=== PATIENT | male | born 1960 | race Caucasian/White ===

== ENCOUNTER → 2016-08-11 | Outpatient (CLI) | payer MEDICAID ==
--- NOTE | 2016-08-11 12:13 | MR ---
EXAMINATION TYPE: MR brain wo con DATE OF EXAM: 08/11/2016 8:23 AM COMPARISON: CT brain from March 24, 2016 HISTORY: subdural hemorrhage, convulsions per order. Seizures per patient. TECHNIQUE: Multiplanar, multisequence imaging of the brain and brainstem is performed without IV cont rast. FINDINGS: Diffusion weighted images demonstrate no evidence of a recent infarct or other diffusion abnormality. There is no worrisome extra-axial fluid collection. There is mild ventricular and sulcal prominence c onsistent with mild age-related cerebral atrophy. There are some scattered foci of T2 hyperintensity seen throughout the white matter bilaterally. Less than 10 focal lesions are felt present. Lesions ar e nonspecific in appearance and distribution but most likely on basis of product of chronic small ves ruben ischemic change in patient this age. T2 Star weighted images show no suspicious intraparenchymal blood product. T2 coronal weighted images show hippocampal gyri to appear symmetric and felt within n ormal limits. Midline structures demonstrate normal morphology. The craniocervical junction appears within normal limits. Normal vascular flow voids are present. There is 1.8 cm mucous retention cyst or polyp in inf erior left maxillary sinus. There is mild to moderate mucosal thickening involving inferior right max illary sinus. There is mild mucosal thickening involving anterior ethmoid sinuses bilaterally. The gl obes are intact bilaterally. IMPRESSION: 1. There is mild diffuse cerebral atrophy and mild chronic small vessel ischemic change. 2. Chronic paranasal sinus disease as detailed above.
== END | disposition home or self-care (01) ==
LOC: RADMRIMAIN 07:47
PROVIDERS: ATTEND Physician Assistant
DX: I67.82 Cerebral ischemia (principal); G31.9 Degenerative disease of nervous system, unspecified; J34.89 Other specified disorders of nose and nasal sinuses
CPT/HCPCS: 70551

== ENCOUNTER → 2016-09-16 | Outpatient (CLI) | payer MEDICAID ==
--- NOTE | 2016-09-17 08:49 | EEG ---
DATE OF SERVICE: 09/16/2016 REASON FOR TESTING: Convulsions and head injury. AGE: 55Y CURRENT ANTIEPILEPTIC MEDICATIONS: None. DESCRIPTION OF THE PROCEDURE: This EEG was performed using a 21-channel digital electroencephalograph, following the international 10 to 20 system. DESCRIPTION OF THE RECORDING: From the beginning of the tracing, and with the patient's eyes closed, the background rhythm was mostly consisting of 10 to 11 Hz alpha frequency in the posterior occipital leads. No obvious asymmetry is seen. Photic stimulation was performed with a good driving response seen. No pathological waves were elicited. Hyperventilation was performed with a minimal build-up of amplitude seen. Again, no pathological waves were elicited. Occasional movement artifacts are seen. The patient remains awake throughout the tracing. No epileptiform discharges were seen. His EKG lead showed a regular rate and rhythm. INTERPRETATION: This awake EEG can be considered within normal limits. There was no asymmetry seen. No epileptiform discharges were noticed. The absence of epileptiform discharges does not rule out the diagnosis of epilepsy, therefore, clinical correlation is recommended. Thank you, Dr. Mann for allowing me to participate in the care of your patient. If you have any questions, please feel free to contact me.
== END | disposition home or self-care (01) ==
LOC: NEUROMAIN 09:30
PROVIDERS: ATTEND Physician Assistant
DX: R56.9 Unspecified convulsions (principal)
CPT/HCPCS: 95816

== ENCOUNTER → 2016-10-17 | Outpatient (CLI) | payer MEDICAID ==
[2016-10-17 09:48] LABS: CH 31.4; CHCM 33.3; HCT 41.3 % (39.0-53.0); HDW 2.14; HGB 13.5 gm/dL (13.0-17.5); MCH 30.9 pg (25.0-35.0); MCHC 32.6 g/dL (31.0-37.0); MCV 94.7 fL (80.0-100.0); Mean Platelet Volume 8.1; RBC 4.36 m/uL (4.30-5.90); RDW 12.7 % (11.5-15.5); WBC 5.8 k/uL (3.8-10.6)
[2016-10-17 10:12] LABS: ALT 76 U/L (21-72); AST 50 U/L (17-59); Alkaline Phosphatase 51 U/L (38-126); Anion Gap 8 mmol/L; Blood Urea Nitrogen 18 mg/dL (9-20); Calcium 9.4 mg/dL (8.4-10.2); Carbon Dioxide 30 mmol/L (22-30); Chloride 102 mmol/L (98-107); Cholesterol 186 mg/dL (<200); Glucose 156 mg/dL (74-99); HDL Cholesterol 41 mg/dL (40-60); Non-African American GFR(MDRD) >60 (>60 ml/min/1.73 sqM); Potassium 4.6 mmol/L (3.5-5.1); Sodium 140 mmol/L (137-145); Total Bilirubin 0.5 mg/dL (0.2-1.3); Total Protein 7.2 g/dL (6.3-8.2); Triglycerides 167 mg/dL (<150)
[2016-10-17 12:08] LABS: Hemoglobin A1C 7.2 % (4.2-6.1)
== END | disposition home or self-care (01) ==
LOC: LABWHC1 09:17
PROVIDERS: ATTEND Family Medicine
DX: E11.9 Type 2 diabetes mellitus without complications (principal)
CPT/HCPCS: 36415; 80053; 80061; 82043; 83036; 84443; 85027

== ENCOUNTER → 2016-12-23 | Outpatient (CLI) | payer MEDICAID ==
--- NOTE | 2016-12-23 21:43 | PN ---
This is a 56-year-old male patient with obstructive sleep apnea coming in for his yearly check. The patient is doing well. No specific complaints. His interim history is positive for a spontaneous subdural hematoma that was complicated by the development of a seizure. The patient was transferred to the [facility], where he was seen by a neurosurgeon. No surgical intervention was done. He was taken off aspirin. Currently he is off anti-epileptic and he is back on the road driving. He has been averaging 7 hours and 18 minutes on the CPAP unit every night. He is using a Mirage FX mask. No snoring while on the CPAP machine. He has lost some weight, and his BMI is currently down to 42. Labolt score is only 2, and he is alert and awake during the day, very compliant with the CPAP unit. He became depressed and he is currently on Celexa 20 mg p.o. daily. BP is 132/72, pulse 75, respiration 16, temperature 98.2. Saturations are 96% on room air. Height is 68 inches. Weight is 283. GENERAL APPEARANCE: Obese, calm, comfortable. HEENT: Short neck. Crowding of posterior pharynx. LUNGS: Diminished; otherwise clear. HEART: Sounds are regular rate and rhythm. Normal S1, S2. ABDOMEN: Soft, nontender. No organomegaly. EXTREMITIES: No edema. No cyanosis or clubbing. IMPRESSION: 1. Symptomatic obstructive sleep apnea, currently on CPAP at a pressure of 11, with good compliancy and clinical response. 2. Morbid obesity with a body mass index of 42, improving. 3. Hypersomnia. Labolt score is down to 2. 4. Hypertension. 5. Hyperlipidemia. 6. Heartburn. PLAN: 1. Refill the patient's CPAP supplies. 2. Encourage weight loss. 3. No need for adjustments on his CPAP pressure. 4. Will continue to follow.
== END | disposition home or self-care (01) ==
LOC: SLEEP 16:41
PROVIDERS: ATTEND Internal Medicine Critical Care Medicine
DX: G47.33 Obstructive sleep apnea (adult) (pediatric) (principal); E66.01 Morbid (severe) obesity due to excess calories; Z68.41 Body mass index [BMI] 40.0-44.9, adult; G47.10 Hypersomnia, unspecified

== ENCOUNTER → 2017-01-29 | Outpatient (CLI) | payer MEDICAID ==
[2017-01-29 10:31] LABS: CH 30.4; HCT 42.9 % (39.0-53.0); HDW 2.06; HGB 14.6 gm/dL (13.0-17.5); MCH 31.5 pg (25.0-35.0); MCHC 34.1 g/dL (31.0-37.0); MCV 92.6 fL (80.0-100.0); Mean Platelet Volume 7.7; RBC 4.64 m/uL (4.30-5.90); RDW 12.3 % (11.5-15.5); WBC 6.2 k/uL (3.8-10.6)
[2017-01-29 11:05] LABS: % Iron Saturation 22.1 % (20-50)
== END | disposition home or self-care (01) ==
LOC: LABWHC1 09:59
PROVIDERS: ATTEND Internal Medicine Hematology & Oncology
DX: D50.9 Iron deficiency anemia, unspecified (principal)
CPT/HCPCS: 36415; 83540; 83550; 85027

== ENCOUNTER → 2017-08-03 | Outpatient (CLI) | payer MEDICAID ==
[2017-08-03 10:38] LABS: HCT 44.6 % (39.0-53.0); HGB 14.2 gm/dL (13.0-17.5); MCH 29.1 pg (25.0-35.0); MCHC 31.9 g/dL (31.0-37.0); MCV 91.1 fL (80.0-100.0); Platelet Count 288 k/uL (150-450); RBC 4.89 m/uL (4.30-5.90); RDW 12.7 % (11.5-15.5); WBC 6.9 k/uL (3.8-10.6)
[2017-08-03 15:47] LABS: Iron Saturation 18.43 (15.00-50.00)
== END | disposition home or self-care (01) ==
LOC: LABWHC1 10:06
PROVIDERS: ATTEND Internal Medicine Hematology & Oncology
DX: D50.9 Iron deficiency anemia, unspecified (principal)
CPT/HCPCS: 36415; 82728; 83540; 83550; 85027

== ENCOUNTER → 2017-11-05 | Outpatient (CLI) | payer MEDICAID ==
[2017-11-05 10:22] LABS: Basophils % (A) 0 %; Eosinophils # (A) 0.1 k/uL (0-0.7); Eosinophils % (A) 2 %; HCT 41.8 % (39.0-53.0); HGB 13.4 gm/dL (13.0-17.5); Lymphocytes # (A) 1.3 k/uL (1.0-4.8); Lymphocytes % (A) 25 %; MCH 28.7 pg (25.0-35.0); MCHC 31.9 g/dL (31.0-37.0); Monocytes # (A) 0.3 k/uL (0-1.0); Monocytes % (A) 6 %; Neutrophils # (A) 3.5 k/uL (1.3-7.7); Neutrophils % (A) 66 %; Platelet Count 226 k/uL (150-450); RBC 4.65 m/uL (4.30-5.90); RDW 12.7 % (11.5-15.5); WBC 5.2 k/uL (3.8-10.6)
[2017-11-05 10:43] LABS: ALT 36 U/L (21-72); AST 25 U/L (17-59); Albumin 3.8 g/dL (3.5-5.0); Alkaline Phosphatase 51 U/L (38-126); Anion Gap 10 mmol/L; Blood Urea Nitrogen 18 mg/dL (9-20); Calcium 9.4 mg/dL (8.4-10.2); Carbon Dioxide 31 mmol/L (22-30); Chloride 100 mmol/L (98-107); Cholesterol 199 mg/dL (<200); Glucose 170 mg/dL (74-99); HDL Cholesterol 44 mg/dL (40-60); LDL Cholesterol,Calculated 118 mg/dL (0-99); Potassium 5.3 mmol/L (3.5-5.1); Sodium 141 mmol/L (137-145); Total Bilirubin 0.3 mg/dL (0.2-1.3); Total Protein 6.7 g/dL (6.3-8.2); Triglycerides 184 mg/dL (<150)
[2017-11-05 17:27] LABS: Hemoglobin A1C 7.7 % (4.0-6.0)
== END | disposition home or self-care (01) ==
LOC: LABWHC1 09:57
PROVIDERS: ATTEND Family Medicine
DX: E11.65 Type 2 diabetes mellitus with hyperglycemia (principal)
CPT/HCPCS: 36415; 80053; 80061; 82043; 82570; 83036; 84443; 85025

== ENCOUNTER → 2018-02-02 | Outpatient (CLI) | payer MEDICAID ==
--- NOTE | 2018-02-02 18:49 | PN ---
PROGRESS NOTE Carl is doing extremely well on his CPAP. He is coming in for an annual check regarding his obstructive sleep apnea treatment. He is 57. He has been diagnosed having obstructive sleep apnea. He is on CPAP at a pressure of 11 cm of water. He has gained around 15 pounds over the past 1 year. He is using a Mirage FX nose mask. He is using the CPAP on an average of 7 hours and 24 minutes per night and his CPAP use for more than 4 hours is 100%. No complaints. His humidity level is at 2. He is waking up refreshed and alert. No other specific complaints otherwise for now. No seizure activity. BP is 117/72, pulse is 82, respirations 16, temperature 97.3, saturation 96% on room air. Weight is 298. Height is 5 feet 8 inches and BMI 45.4. GENERAL APPEARANCE: Calm, comfortable. Head is atraumatic, normocephalic. Neck is supple. There is no JVD. No goiter or neck masses. Mallampati class IV. LUNGS: Clear to auscultation. HEART: Sounds are regular rate and rhythm. Normal S1, S2. No S3, S4. No murmurs. Abdomen is soft, nontender. No organomegaly. EXTREMITIES: No edema. No cyanosis or clubbing. NEUROLOGIC: Alert and oriented x3. There are no focal neurological deficits. IMPRESSION: 1. Obstructive sleep apnea, currently on CPAP with excellent clinical response and compliance. 2. Obesity with interval weight gain. Current BMI is up to 45. 3. Hypersomnia. 4. Hypertension. PLAN: Continue CPAP at same level of pressure, weight loss. Renew CPAP supplies. See me back in a year's time, earlier if needed. MMODL / IJN: [id number] /
== END | disposition home or self-care (01) ==
LOC: SLEEP 16:43
PROVIDERS: ATTEND Internal Medicine Critical Care Medicine
DX: G47.33 Obstructive sleep apnea (adult) (pediatric) (principal); I10 Essential (primary) hypertension; E66.9 Obesity, unspecified; Z68.42 Body mass index [BMI] 45.0-49.9, adult; Z99.89 Dependence on other enabling machines and devices

== ENCOUNTER 2018-03-14 07:55 | Emergency (ER) | payer MEDICAID ==
[2018-03-14] MEDS ORDERED: ORPHENADRINE 30 MG/ML 2 ML VIAL IM STA (08:44)
[2018-03-14] MEDS ORDERED: MORPHINE SULFATE 4 MG/ML SYRINGE IM STA (08:44)
[2018-03-14] MEDS ORDERED: KETOROLAC 30 MG/ML 1 ML VIAL IM STA (08:44)
[2018-03-14 09:02] VITALS: RESP 18
--- NOTE | 2018-03-14 09:03 | ED ---
Back Pain [facility] - General Chief Complaint: Back Pain/Injury Stated Complaint: Back Pain Time Seen by Provider: 03/14/18 08:31 Source: patient Limitations: no limitations - History of Present Illness Initial Comments: 57-year-old male patient presents to the emergency department today with complaints of mid thoracic and low back pain. Patient states that he does have a history of arthritis in his spine and back issues however his pain is usually well-controlled with minimal use of his tramadol and Calvin. Patient states that for the last 3 weeks he has been having increase in the pain. Patient states that the pain has been worsening. States that he is unable to sleep at night. Patient states that one point the pain did radiate into his left groin but that is resolved. He denies any known injury. Denies any numbness or tingling in his lower extremities. Denies radiation of the pain to his lower extremities. Denies saddle anesthesia or loss of bowel or bladder control. He denies any fevers or chills. Patient denies any recent rash, shortness breath, chest pain, abdominal pain, nausea, vomiting, diarrhea, constipation, dizziness , weakness, hematuria, dysuria, urinary urgency, urinary frequency, headache, visual changes, or any other complaints. - Related Data Home Medications Medication Instructions Recorded Confirmed Aspirin [Adult Low Dose Aspirin EC] 81 mg PO DAILY 10/29/15 01/27/16 Esomeprazole Magnesium [NexIUM] 40 mg PO DAILY 10/29/15 01/27/16 Hydrocodone/Acetaminophen 1 PO DAILY 10/29/15 01/27/16 [Hydrocodon-Acetaminophen 5-325] Lisinopril [Zestril] 10 mg PO DAILY 10/29/15 01/27/16 Virgin-3 Acid Ethyl Esters [Lovaza] 2 gm PO DAILY 10/29/15 01/27/16 Pramipexole [Mirapex] 0.125 mg PO DAILY 10/29/15 01/27/16 Simvastatin [Zocor] 20 mg PO HS 10/29/15 01/27/16 metFORMIN HCL [Glucophage] 850 mg PO BID 10/29/15 01/27/16 traMADol HCL [Tramadol HCl] 50 mg PO DAILY 10/29/15 01/27/16 Loratadine [Claritin] 10 mg PO DAILY 01/27/16 01/27/16 Pioglitazone [Actos] 15 mg PO DAILY 01/27/16 01/27/16 Previous Rx's Medication Instructions Recorded Cyclobenzaprine [Flexeril] 10 mg PO TID #30 tab 03/14/18 Allergies Allergy/AdvReac Type Severity Reaction Status Date / Time Penicillins Allergy Swelling Verified 03/14/18 08:16 Review of Systems ROS Statement: Those systems with pertinent positive or pertinent negative responses have been documented in the HPI. ROS Other: All systems not noted in ROS Statement are negative. Past Medical History Past Medical History: Diabetes Mellitus, Hyperlipidemia, Hypertension Additional Past Medical History / Comment(s): Low iron, History of Any Multi-Drug Resistant Organisms: None Reported Past Surgical History: Orthopedic Surgery Past Psychological History: No Psychological Hx Reported Smoking Status: Never smoker Past Alcohol Use History: None Reported Past Drug Use History: None Reported General Exam Limitations: no limitations General appearance: alert, in no apparent distress, other (This is a well- developed, well-nourished adult male patient in no acute distress. Vital signs upon presentation are temperature 98.2F, pulse 73, respirations 20, blood pressure 126/54, pulse ox 95% on room air.) Eye exam: Present: normal appearance, PERRL, EOMI. Absent: scleral icterus, conjunctival injection, periorbital swelling ENT exam: Present: normal exam, normal oropharynx, mucous membranes moist Neck exam: Present: normal inspection, full ROM. Absent: tenderness, meningismus, lymphadenopathy Respiratory exam: Present: normal lung sounds bilaterally. Absent: respiratory distress, wheezes, rales, rhonchi, stridor Cardiovascular Exam: Present: regular rate, normal rhythm, normal heart sounds. Absent: systolic murmur, diastolic murmur, rubs, gallop, clicks GI/Abdominal exam: Present: soft, normal bowel sounds. Absent: distended, tenderness, guarding, rebound, rigid Extremities exam: Present: normal inspection, full ROM, normal capillary refill , other (Skin to the lower extremities is pink, warm, and dry. Cap refills less than 3 seconds. Post tibial pulses are 2+ and equal bilaterally. No swelling noted.). Absent: tenderness, pedal edema, joint swelling, calf tenderness Back exam: Present: normal inspection, vertebral tenderness (There is most mid thoracic and lumbar vertebral tenderness). Absent: paraspinal tenderness Neurological exam: Present: alert, oriented X3, CN II-XII intact Psychiatric exam: Present: normal affect, normal mood Skin exam: Present: warm, dry, intact, normal color. Absent: rash Course Vital Signs 03/14/18 03/14/18 03/14/18 08:13 08:39 10:13 Temperature 98.2 F 97.3 F L Pulse Rate 73 70 63 Respiratory 20 18 18 Rate Blood Pressure 120/56 130/58 O2 Sat by Pulse 95 97 97 Oximetry Medical Decision Making - Medical Decision Making 57-year-old male patient presents the emergency department today for complaints of increased thoracic and lumbar back pain. Patient states the pain has been worsening over the last 3 weeks. Physical examination did reveal some thoracic and lumbar tenderness. There is no paraspinal tenderness. CT of the thoracic and lumbar spines are obtained. Did show mild thecal sac impingement at L4 to L5 with spinal canal stenosis. Given patient's symptoms and history does seem that his pain is mostly related to musculoskeletal back pain. Patient was given pain medication and muscle relaxer here in the department, he does report mild improvement of symptoms. Patient will be discharged home with a muscle relaxer. He is instructed to continue taking his home medications for pain. He is instructed to follow-up with Dr. Bravo (family requested). Also patient did have evidence of a large hiatal hernia on CT they will follow up with general surgery for this. Return parameters were discussed in detail. Patient and family verbalized understanding and agree with this plan. - Radiology Data Radiology results: report reviewed, image reviewed CT thoracic spine without contrast was obtained. Report was reviewed in its entirety. Impression by Dr. Rodriguez shows large hiatal hernia mild degenerative change. CT of the lumbar spine was obtained without contrast. Impression by Dr. Rodriguez shows degenerative disc disease from L3 to L4 through L5-S1. Specifically there is diffuse disc displacement, small central protrusion mildly deforming the thecal sac. There is facet arthropathy, moderate central canal stenosis at L4 to L5. Disposition Clinical Impression: Spinal stenosis, Lumbar radiculopathy, Large hiatal hernia Disposition: HOME SELF-CARE Condition: Good Instructions: Lumbar Radiculopathy (ED), Chronic Back Pain (ED) Additional Instructions: Take medications as directed. Apply warm moist heat to the low back. Perform gentle range of motion exercises. Speak with your physician about referrals to pain management, orthopedics, and surgery. Return here immediately for any new , worsening, or concerning symptoms. Prescriptions: Cyclobenzaprine [Flexeril] 10 mg PO TID #30 tab Is patient prescribed a controlled substance at d/c from ED?: No Referrals: Austen Mann MD [Primary Care Provider] - 1-2 days Ton Bravo DO [Doctor of Osteopathic Medicine] - 1-2 days Time of Disposition: 10:10
--- NOTE | 2018-03-14 09:43 | CT ---
EXAMINATION TYPE: CT lumbar spine wo con DATE OF EXAM: 03/14/2018 9:35 AM COMPARISON: None. HISTORY: Back pain CT DLP: 1704.4 mGycm Automated exposure control for dose reduction was used. Unenhanced CT of the lumbar spine was performed. Bone and soft tissue window settings are submitted as well as coronal and sagittal reconstructions. FINDINGS: There is mild atheromatous calcification of the visualized arterial tree. Paraspinal soft t issues are otherwise normal. Vertebral body height and alignment are maintained. There is no spondylolysis or spondylolisthesis. From T12 L1-L2 3, no definite abnormality is seen. L3-L4: The intervertebral foramina are well maintained. There is a diffuse disc displacement. The fac ets are unremarkable. L4-L5: Intervertebral foramina are well maintained. There is a diffuse disc displacement. I suspect a small central protrusion mildly deforming the thecal sac. There is facet arthropathy. There is moder ate central canal stenosis. L5-S1: There is disc space loss. There is hypertrophic spondylosis both anteriorly and posteriorly. T his is impinging upon the right intervertebral foramina at this level and the exiting right L5 nerve root. IMPRESSION: 1. DEGENERATIVE DISC DISEASE FROM L3-4 THROUGH L5-S1. 2. SMALL CENTRAL PROTRUSION, L4-5 DEFORMING THE THECAL SAC AND IN COMBINATION WITH FACET ARTHROPATHY IS CAUSING MODERATE CENTRAL CANAL STENOSIS. 3. HYPERTROPHIC SPONDYLOSIS, L5-S1 IMPINGING UPON THE RIGHT INTERVERTEBRAL FORAMINA AT THIS LEVEL.
--- NOTE | 2018-03-14 09:46 | CT ---
EXAMINATION TYPE: CT thoracic spine wo con DATE OF EXAM: 03/14/2018 COMPARISON: None. HISTORY: Back pain CT DLP: 2089.4 mGycm Automated exposure control for dose reduction was used. FINDINGS: Most of the stomach is within the thorax. Paraspinal soft tissues are otherwise unremarkabl e. There is some dependent atelectasis at the base of the right lung. Visualized portions of the lungs a re otherwise clear. Vertebral body height and alignment are maintained. There is mild, diffuse hypertrophic spondylosis. No definite protrusion is seen. Intervertebral foramina are patent. IMPRESSION: 1. LARGE HIATAL HERNIA. 2. MILD DEGENERATIVE CHANGE.
[2018-03-14 10:13] VITALS: BP 130/58; PULSE 63; TEMP 97.3
== END 2018-03-14 10:23 | disposition home or self-care (01) ==
LOC: EC 07:55
DX: M48.061 Spinal stenosis, lumbar region without neurogenic claudication (principal); M51.17 Intervertebral disc disorders with radiculopathy, lumbosacral region; M46.96 Unspecified inflammatory spondylopathy, lumbar region; K44.9 Diaphragmatic hernia without obstruction or gangrene; M47.24 Other spondylosis with radiculopathy, thoracic region; E78.5 Hyperlipidemia, unspecified; I10 Essential (primary) hypertension; E11.9 Type 2 diabetes mellitus without complications; Z79.82 Long term (current) use of aspirin; Z79.84 Long term (current) use of oral hypoglycemic drugs; Z79.891 Long term (current) use of opiate analgesic; Z79.899 Other long term (current) drug therapy; Z88.0 Allergy status to penicillin
CPT/HCPCS: 72128; 72131; 99283; 96372 ×3; J2270; J2360; J1885

== ENCOUNTER → 2018-03-26 | Outpatient (CLI) | payer MEDICAID ==
[2018-03-26 08:42] LABS: HCT 39.7 % (39.0-53.0); HGB 12.5 gm/dL (13.0-17.5); MCH 28.9 pg (25.0-35.0); MCHC 31.5 g/dL (31.0-37.0); MCV 91.7 fL (80.0-100.0); Mean Platelet Volume 7.2; Platelet Count 258 k/uL (150-450); RBC 4.33 m/uL (4.30-5.90); WBC 6.3 k/uL (3.8-10.6)
[2018-03-26 16:24] LABS: Iron Saturation 18.5 (15.00-50.00)
== END | disposition home or self-care (01) ==
LOC: LABWHC1 08:08
PROVIDERS: ATTEND Internal Medicine Hematology & Oncology
DX: D50.9 Iron deficiency anemia, unspecified (principal)
CPT/HCPCS: 36415; 82728; 83540; 83550; 85027

== ENCOUNTER → 2018-04-15 | Outpatient (CLI) | payer MEDICAID ==
[2018-04-14 14:17] VITALS: BMI 47.4
[2018-04-15 12:43] VITALS: RESP 16
[2018-04-15 12:47] VITALS: BP 108/69; PULSE 84
--- NOTE | 2018-04-17 15:25 | P.PAINCN ---
History of Present Illness - Reason for Consult Consult date: 04/15/18 - History of Present Illness This is initial consultation visit for this 57 years old female with a chronic history of severe low back pain, pain started more than 10 years ago he denies any initiating event, the intensity of the pain increased over the last couple of years, he denies any weakness in the lower extremity patient reported that he had occasional numbness radiated from the low back area towards the groin bilaterally, he denies any change in the bowel movement or urination, he has no fever or night sweats, the intensity of the pain fluctuates between 6/10 increased to 10 over 10, currently she is using pain medication which helping to some degree but he wishes he can get a better relief ,by interventional pain management. Past Medical History Past Medical History: Diabetes Mellitus, Hyperlipidemia, Sleep Apnea/CPAP/BIPAP Additional Past Medical History / Comment(s): Low iron(recent infusions), subdural hematoma 2016(seizure x 1 at that time), back pain, large hiatal hernia , age related arthritis, History of Any Multi-Drug Resistant Organisms: None Reported Past Surgical History: Orthopedic Surgery Additional Past Surgical History / Comment(s): left knee arthroscopy Past Anesthesia/Blood Transfusion Reactions: No Reported Reaction Smoking Status: Never smoker - Past Family History Father Family Medical History: Cancer Additional Family Medical History / Comment(s): lung mets to brain Medications and Allergies Home Medications Medication Instructions Recorded Confirmed Type Hydrocodone/Acetaminophen 1 tab PO HS PRN 10/29/15 04/16/18 History [Hydrocodon-Acetaminophen 5-325] Lisinopril [Zestril] 10 mg PO DAILY 10/29/15 04/16/18 History metFORMIN HCL [Glucophage] 850 mg PO BID 10/29/15 04/16/18 History traMADol HCL [Tramadol HCl] 50 - 100 mg PO Q8HR PRN 10/29/15 04/16/18 History Citalopram Hydrobromide [CeleXA] 20 mg PO DAILY 04/14/18 04/16/18 History Cyclobenzaprine [Flexeril] 10 mg PO TID PRN 04/14/18 04/16/18 History Esomeprazole Magnesium [NexIUM] 20 mg PO DAILY 04/14/18 04/16/18 History Insulin Glargine [Lantus] 22 unit SQ HS 04/14/18 04/16/18 History Pioglitazone [Actos] 30 mg PO DAILY 04/14/18 04/16/18 History Simvastatin [Zocor] 40 mg PO HS 04/14/18 04/16/18 History Allergies Allergy/AdvReac Type Severity Reaction Status Date / Time Penicillins Allergy Swelling Verified 04/16/18 10:08 Physical Exam Social history : not smoker , NO ETOH , NO Illegal drugs u Review of Systems : 1- Constitutional : no chills , no fever , no night sweats , 2- Ears : no ear discharge , no change in hearing 3-Nose, Mouth ,Throat ; no bleeding gums, no sore throat , no epistaxis , 4-Cardiovascular : Denies chest pain, , no orthopnea , no palpitation 5-Respiratory : Denies cough , no dyspnea , no hemoptysis 6-Gastrointestinal :, no change in bowel habits , no coffee- ground emesis . 7-Genitourinary : No hematuria , no discharge , no incontinence, 8-Musculoskeletal : No gait dysfunction , report low back pain , 9- Neurological : no ataxia , no tremor , no sezure , 10-Psychatric , no suicidal ideation no hallucination 11- Endocrine : no cold intolerence , no polyuria , no polydypsia , 12-Hematologic : no easy bleeding , no easy brusing , 13-Allergic / immunology : no angioedema , no wheezing ,no allergic rhinitis 14-Integumentary : no brttle nails , no change hair / nails , no foot/leg ulcers . Physical Examinations : 1-Constitutional : Cooperative , not in acute distress . 2-HEENT : nech ; supple , no Lymphadenopathy , no Thyromegaly , :eyes , no icterus, no photophobia . ENT : , normal oropharynx , no Thrush 3- Respiratory : Chest clear to auscultations Bilaterally , no wheezing 4- Cardiovascular : regular rate and rhythem , S1 , S2 , no S3 , no S4. 5- Gastrointestinal: abdomen soft no tenderness , no organomegally . 6- Genitourinary : Defferred . 7-Integumentary : No cellulitis , no ulcers , normal skin turgor , no cyanotic . 8- neurologic : Cranial nerve II to XII intact , no focal neurological deffecit 9-psychatric : alert , oriented X 3 , appropriate affect , intact judgment and insight . 10-Lymphatic : no Lymphadenopathy. 11- musculoskeltal: abnormal gait Lumber spine moter stegnth lower extremities ,thigh and legs 5/5 Right side , 5/5 Left side deep tendon reflexes : normal Knee Jerk , normal ankle Jerk positive lumber facet Loading Test Range of motion of the lumbar spine Flexion 30 degrees, extension 10 degrees strait leg raising test , positive at 30 degree Fabere test positive RT and positive LT . Results Comments: MRI of the lumbar spine spondylosis at L5-S1 ,and multilevel lumbar degenerative disc disease from L3 to S1 Assessment and Plan Plan: Assessment and plan= lumbar radiculopathy, lumbar degenerative disc disease , lumbar spondylosis and facet arthropathy without myelopathy Patient will be good candidate to have lumbar epidural steroid injections under fluoroscopy guidance, Procedure risk and benefits and alternatives discussed with the patient and he agreed with the preceding. Patient could benefit from NSAID. Discher reported that the current medication is not helping him and I explained to the patient that he has to discuss this option with his primary care, patient could benefit from increasing the [place] to 7.5/325 . Time with Patient: Greater than 30 PQRS Measure Charge Sheet Measure #130: Documentation of Current Meds in Medical Chart: Patient's medications documented in chart Measure #226: Tobacco Use: Screen & Cessation Intervention: Pt not a tobacco user Measure #111: Pneumonia Vaccination: Pneumococcal vaccine NOT administered or previously given Measure #47: Advance Care Plan: Advance care planning discussed & documented, pt chose/unable to give Measure #412: Opioid Treatment Agreement: No documentation of signed opioid treatment agreement Measure #408: Opioid Therapy Follow-up Evaluation: Patient had NO f/u eval minimum every 3 months during opioid therapy Measure #317: Preventitive Care & Scrn High Bld Press & F/U: Normal blood pressure, f/u not required Measure #128: Body Mass Index (BMI) Screening & Follow-up: BMI documented ABOVE normal parameters - f/u documented Measure #131: Pain Assessment & Follow-up: Pain positive & plan documented, Follow-up scheduled Measure #431: Unhealthy Alcohol Use Preventative Care & Scrn: Patient not identified as an unhealthy alcohol user PQRS Narrative: Smoking Status Never smoker Do You Want the Pneumonia No Vaccine AT THIS TIME? Blood Pressure 108/69 Pain Intensity [Bilateral 4 Lower Back] Scale Used Numeric (1 - 10) Hx Alcohol Use (MH) No Home Medications: Ambulatory Orders Hydrocodone/Acetaminophen [Hydrocodon-Acetaminophen 5-325] 1 tab PO HS PRN 10/28 Lisinopril [Zestril] 10 mg PO DAILY 10/29/15 metFORMIN HCL [Glucophage] 850 mg PO BID 10/29/15 traMADol HCL [Tramadol HCl] 50 - 100 mg PO Q8HR PRN 10/29/15 Citalopram Hydrobromide [CeleXA] 20 mg PO DAILY 04/14/18 Cyclobenzaprine [Flexeril] 10 mg PO TID PRN 04/14/18 Esomeprazole Magnesium [NexIUM] 20 mg PO DAILY 04/14/18 Insulin Glargine [Lantus] 22 unit SQ HS 04/14/18 Pioglitazone [Actos] 30 mg PO DAILY 04/14/18 Simvastatin [Zocor] 40 mg PO HS 04/14/18
== END | disposition home or self-care (01) ==
LOC: PNWHC3 11:51
PROVIDERS: ATTEND Specialist
DX: M51.17 Intervertebral disc disorders with radiculopathy, lumbosacral region (principal); M47.27 Other spondylosis with radiculopathy, lumbosacral region; M46.96 Unspecified inflammatory spondylopathy, lumbar region; E11.9 Type 2 diabetes mellitus without complications; E78.5 Hyperlipidemia, unspecified; Z79.899 Other long term (current) drug therapy; Z79.84 Long term (current) use of oral hypoglycemic drugs; Z79.4 Long term (current) use of insulin; Z88.0 Allergy status to penicillin; Z98.890 Other specified postprocedural states
CPT/HCPCS: 99211

== ENCOUNTER 2018-04-20 06:32 | Day surgery (SDC) | payer MEDICAID ==
[2018-04-16 10:13] VITALS: BMI 44.3
[~2018-04-20 06:32] MED LIST: LACTATED RINGERS 1,000 ML IV SCH
[2018-04-20 06:59] LABS: Glucose,Whole Blood 210 mg/dL (75-99)
[2018-04-20 07:03] VITALS: TEMP 97.6
[2018-04-20] MEDS ORDERED: LIDOCAINE 1% 20 ML VIAL (10MG/ML) FOR IV START INTRADERMA ONE (07:03)
--- NOTE | 2018-04-20 07:45 | P.PCN ---
Date of Procedure: 04/20/18 Procedure(s) Performed: PREOPERATIVE DIAGNOSIS: 1- Lumbar Degenerative Disc Diseases 2-Lumbar spondylosis with Facet arthropathy without myelopathy. 3-lumbar radiculopathy. POSTOPERATIVE DIAGNOSIS: 1-Lumber Degenerative Disc Diseases 2-Lumbar spondylosis with Facet arthropathy without myelopathy. 3-lumbar radiculopathy. PROCEDURE 1. Lumbar epidural steroid injection under fluoroscopic guidance at the L4-5 level. 2. Lumbar epidurogram. ANESTHESIA: Local with 1% lidocaine 3 ml and , moderate sedation with intravenous Versed 2 mg ,and fentanyle 50 Mcg EBL: Minimal PROCEDURE INDICATION: The patient with low back pain and radiculitis symptoms unresponsive to conservative treatment. Fluoroscopy was used to optimize visualization of the needle placement and to maximize safety. PROCEDURE DESCRIPTION / TECHNIQUE: The patient was seen and identified in the preoperative area. Risks, benefits , complications including but not limited to infections ,bleeding ,allergic reaction to the medications ,nerve damage and not complete pain releife , and alternatives were discussed with the patient. The patient agreed to proceed with the procedure and signed the consent. IV was started, and vital signs were stable. Patient was taken to the OR and time out was completed. The patient was placed in the prone position on procedure table and a pillow was placed under the abdomen to reduce lumbar lordosis. The lumbosacral area was prepped and draped in the usual sterile fashion.ere closely monitored during the procedure. Conscious sedation was used during the procedure to decrease patients anxiety. Vital signs was monitered during the entire procedure. Using anterior-posterior fluoroscopy, the L4-5 interlaminar space was identified and the skin over this site was marked and then infiltrated with 1% lidocaine subcutaneously. Subsequently, a 20-gauge Tuohy epidural needle was inserted and advanced toward the epidural space using the ``Loss of resistance technique and guided by AP and lateral fluoroscopy. The correct needle position in the epidural space was verified with the injection of 2 mL of the water soluble contrast dye Isovue 200 contrast and observing an excellent epidurogram with the epidural spread of the dye, after negative aspiration for blood and CSF and in the absence of paresthesias. Again after negative aspiration, a 6 ml mixture containing 40 mg of Depo-medrol and 2 ml of preservative free Normal Saline, and 2 ml of preservative free lidocaine 1% solution was injected and a washout of epidurogram was seen. Needle was withdrawn intact, skin was cleansed, and bandages were applied. COMPLICATIONS: None DISPOSITION / PLANS: The patient was placed in a supine position and transferred to the recovery area in a stable condition for observation. There was no evidence of lower extremity motor or sensory deficit after the procedure. Patient was discharged from the recovery room after meeting discharge criteria. Home discharge instructions were given to the patient by the staff. The patient was reexamined prior to discharge. The patient will schedule a follow up in the clinic in 2-4 weeks.
[2018-04-20] MEDS ORDERED: IV FLUID CONTINUATION 1,000 ML IV ONE ×2 (07:50)
[2018-04-20 07:54] VITALS: RESP 18
[2018-04-20 07:58] LABS: Glucose,Whole Blood 214 mg/dL (75-99)
[2018-04-20 08:07] VITALS: BP 106/71; PULSE 69
--- NOTE | 2018-04-20 08:30 | FL ---
EXAMINATION TYPE: FL guided pain mgmt statistic DATE OF EXAM: 04/20/2018 HISTORY: Flouroscopy time 2 seconds of fluoroscopy provided. IMPRESSION: 1. Fluoroscopy time.
== END 2018-04-20 08:22 | disposition home or self-care (01) ==
LOC: ORPAIN 06:32
PROVIDERS: ATTEND Specialist
DX: G89.29 Other chronic pain (principal); M51.16 Intervertebral disc disorders with radiculopathy, lumbar region; M47.26 Other spondylosis with radiculopathy, lumbar region; E11.9 Type 2 diabetes mellitus without complications; E78.5 Hyperlipidemia, unspecified; Z99.89 Dependence on other enabling machines and devices; G47.30 Sleep apnea, unspecified; M19.90 Unspecified osteoarthritis, unspecified site; Z79.899 Other long term (current) drug therapy; Z79.4 Long term (current) use of insulin; Z88.0 Allergy status to penicillin
CPT/HCPCS: 62323; J2250; J1030; J3010; Q9966

== ENCOUNTER 2018-05-04 07:26 | Day surgery (SDC) | payer MEDICAID ==
[2018-05-03 08:24] VITALS: BMI 44.3
[2018-05-04 08:07] VITALS: RESP 16; TEMP 97.2
--- NOTE | 2018-05-04 08:24 | P.PCN ---
Date of Procedure: 05/04/18 Procedure(s) Performed: PREOPERATIVE DIAGNOSIS: 1- Lumbar Degenerative Disc Diseases 2-Lumbar spondylosis with Facet arthropathy without myelopathy. 3-lumbar radiculopathy. POSTOPERATIVE DIAGNOSIS: 1-Lumber Degenerative Disc Diseases 2-Lumbar spondylosis with Facet arthropathy without myelopathy. 3-lumbar radiculopathy. PROCEDURE 1. Lumbar epidural steroid injection under fluoroscopic guidance at the L4-5 level. 2. Lumbar epidurogram. ANESTHESIA: Local with 1% lidocaine 3 ml and , moderate sedation with intravenous Versed 2 mg ,and fentanyle 50 Mcg EBL: Minimal PROCEDURE INDICATION: The patient with low back pain and radiculitis symptoms unresponsive to conservative treatment. Fluoroscopy was used to optimize visualization of the needle placement and to maximize safety. PROCEDURE DESCRIPTION / TECHNIQUE: The patient was seen and identified in the preoperative area. Risks, benefits , complications including but not limited to infections ,bleeding ,allergic reaction to the medications ,nerve damage and not complete pain releife , and alternatives were discussed with the patient. The patient agreed to proceed with the procedure and signed the consent. IV was started, and vital signs were stable. Patient was taken to the OR and time out was completed. The patient was placed in the prone position on procedure table and a pillow was placed under the abdomen to reduce lumbar lordosis. The lumbosacral area was prepped and draped in the usual sterile fashion.ere closely monitored during the procedure. Conscious sedation was used during the procedure to decrease patients anxiety. Vital signs was monitered during the entire procedure. Using anterior-posterior fluoroscopy, the L4-5 interlaminar space was identified and the skin over this site was marked and then infiltrated with 1% lidocaine subcutaneously. Subsequently, a 20-gauge Tuohy epidural needle was inserted and advanced toward the epidural space using the ``Loss of resistance technique and guided by AP and lateral fluoroscopy. The correct needle position in the epidural space was verified with the injection of 2 mL of the water soluble contrast dye Isovue 200 contrast and observing an excellent epidurogram with the epidural spread of the dye, after negative aspiration for blood and CSF and in the absence of paresthesias. Again after negative aspiration, a 6 ml mixture containing 40 mg of Depo-Medrole and 2 ml of preservative free Normal Saline, and 2 ml of preservative free lidocaine 1% solution was injected and a washout of epidurogram was seen. Needle was withdrawn intact, skin was cleansed, and bandages were applied. COMPLICATIONS: None DISPOSITION / PLANS: The patient was placed in a supine position and transferred to the recovery area in a stable condition for observation. There was no evidence of lower extremity motor or sensory deficit after the procedure. Patient was discharged from the recovery room after meeting discharge criteria. Home discharge instructions were given to the patient by the staff. The patient was reexamined prior to discharge. The patient will schedule a follow up in the clinic in 2-4 weeks.
[2018-05-04] MEDS ORDERED: IV FLUID CONTINUATION 1,000 ML IV ONE (08:29)
--- NOTE | 2018-05-04 08:34 | FL ---
Fluoroscopy HISTORY: Pain 2 seconds fluoroscopy time supplied to the referring clinician. 1 intraoperative C-arm images docume nt the procedure. See dictated report from anesthesia.
[2018-05-04 08:36] LABS: Glucose,Whole Blood 208 mg/dL (75-99)
[2018-05-04 08:36] LABS: Glucose,Whole Blood 215 mg/dL (75-99)
[2018-05-04 08:47] VITALS: BP 125/78; PULSE 74
== END 2018-05-04 09:02 | disposition home or self-care (01) ==
LOC: ORPAIN 07:26
PROVIDERS: ATTEND Specialist
DX: M51.16 Intervertebral disc disorders with radiculopathy, lumbar region (principal); M47.26 Other spondylosis with radiculopathy, lumbar region; I10 Essential (primary) hypertension; E11.9 Type 2 diabetes mellitus without complications; Z88.0 Allergy status to penicillin
CPT/HCPCS: 62323; J2250; J1030; J3010; Q9966; 99152

== ENCOUNTER → 2018-05-21 | Outpatient (CLI) | payer MEDICAID ==
[2018-05-21 17:33] LABS: Hemoglobin A1C 9.3 % (4.0-6.0)
[2018-05-21 19:32] LABS: Albumin/Globulin Ratio 1.82 (1.20-2.10); Anion Gap 8.7 mmol/L (4.00-12.00); Calcium 8.9 mg/dL (8.7-10.3); Carbon Dioxide 27.3 mmol/L (21.6-31.8); Globulin 2.2 g/dL (2.1-3.7); LDL Cholesterol,Calculated 108.8 mg/dL (0.0-131.0); Potassium 4.9 mmol/L (3.5-5.5); Total Bilirubin 0.3 mg/dL (0.2-1.2); Total Protein 6.2 g/dL (6.2-8.2); VLDL Calculation 44.2 mg/dL (5.00-40.00)
[2018-05-21 19:40] LABS: Prostate Specific Antigen 0.9 ng/mL (0.0-3.5)
== END | disposition home or self-care (01) ==
LOC: LABWHC1 07:34
PROVIDERS: ATTEND Family Medicine
DX: Z00.00 Encounter for general adult medical examination without abnormal findings (principal); E11.65 Type 2 diabetes mellitus with hyperglycemia
CPT/HCPCS: 36415; 80053; 80061; 83036; 84153

== ENCOUNTER → 2018-06-02 | Outpatient (CLI) | payer MEDICAID ==
[2018-06-02 11:50] VITALS: BP 126/82; PULSE 70; RESP 18
--- NOTE | 2018-06-02 12:07 | P.PN ---
Subjective Progress Note Date: 06/02/18 This is a 57-year-old gentleman with history of lower back pain with radiation to the left groin. He had lumbar epidural steroid injection twice which gave him 2 weeks of pain relief. He denies any numbness or tingling in the lower extremities or any bowel or bladder dysfunction also denies any weakness in the lower extremities. He still works full-time.. He takes tramadol and 1 pill of [place] at home and he gets them from his primary care physician. He also uses Motrin 800 mg 1-2 pills a day if needed. Today, pt denies new-onset weakness, bowel/bladder incontinence, or any other signs or symptoms of cauda equina syndrome. There are no signs of acute intoxication, and no indications of medication diversion or overuse. In addition to above, 13-point review of systems is also negative for chest pain , shortness of breath, changes in vision, changes in hearing, new onset weakness , abdominal pain, diarrhea, extreme fatigue, malaise, fever, skin changes, homicidal or suicidal ideation, or bowel or bladder incontinence. Vital Signs: Reviewed in EMR Gen: AAOx3, NAD HEENT: PERRLA,hearing grossly normal Pulm: resp unlabored Neck: supple, trachea midline Neuro exam of the lower extremities: Normal and symmetrical muscle strength and deep tendon reflexes bilaterally Straight leg raising test: Negative bilaterally Tenderness in the paravertebral musculature: Mild in the lumbar area Neuro: CN II-XII grossly intact, Imaging: Reviewed in EMR/chart Assessment: Morbid obesity Diabetes Lumbar spondylosis without myelopathy Plan: 1. Explanation: Opioid and psychological risk scores were reviewed. Diagnoses , prognoses, and multiple treatment options including but not limited to physical therapy, interventional therapies, adjuvant medical therapies, narcotic medication therapies, and surgery were discussed with the patient and all questions were answered to the patient's satisfaction. 2. Opioid agreement: We do not prescribe opioids 3. Counseling: The patient was counseled extensively on SMOKING CESSATION, BODY MASS INDEX, EXERCISE. Specifically, the patient was instructed regarding the importance of smoking cessation, obesity, and exercise in the context of both chronic pain and overall health. 4. Procedures: Schedule for diagnostic lumbar medial branch block under fluoroscopic guidance for levels L3 4, L4-L5, and L5-S1 bilaterally 5. Consultations: None 6. Investigations: None 7. Medications: Motrin 800 mg #60 pills with 1 refill 8. Disposition: Return to clinic for the above-mentioned procedure 9. Maps were reviewed and were appropriate. Objective - Vital Signs Vital signs: Vital Signs Temp Pulse 70 06/02/18 11:40 Resp 18 06/02/18 11:40 BP 126/82 06/02/18 11:40 Pulse Ox 96 06/02/18 11:40 Intake & Output 06/01/18 06/02/18 06/02/18 18:59 06:59 18:59 Weight 136.078 kg
== END | disposition home or self-care (01) ==
LOC: PNWHC3 11:31
PROVIDERS: ATTEND Anesthesiology
DX: M47.816 Spondylosis without myelopathy or radiculopathy, lumbar region (principal); E66.01 Morbid (severe) obesity due to excess calories; E11.9 Type 2 diabetes mellitus without complications; Z68.41 Body mass index [BMI] 40.0-44.9, adult
CPT/HCPCS: 99211

== ENCOUNTER → 2018-06-21 | Day surgery (SDC) | payer MEDICAID ==
[~2018-06-21] MED LIST changes: -LACTATED RINGERS 1,000 ML IV SCH; +SODIUM CHLORIDE 0.9% 500 ML 500 ML IV ONE; +SODIUM CHLORIDE 0.9% 500 ML 500 ML IV SCH
[2018-06-21 06:31] VITALS: TEMP 98.1
--- NOTE | 2018-06-21 07:24 | P.PCN ---
Date of Procedure: 06/21/18 Procedure(s) Performed: PREOPERATIVE DIAGNOSIS : 1- Lumbar spondylosis with Facet Arthropathy without myelopathy . 2- Lumber degenerative disc disease POSTOPERATIVE DIAGNOSIS: 1- Lumbar spondylosis with Facet Arthropathy without myelopathy . 2- Lumber degenerative disc disease PROCEDURE: Diagnostic bilateral L3 -4 , L4 -5 , and L5-S1 medial branch block under fluoroscopy ANESTHESIA: Local with Ropivacain 0.5 % 6 ml , moderate sedation with intravenous Versed 2 mg and Fentanyl 100 mcg. EBL: Minimal COMPLICATION: None. IV FLUIDS: 100 mL of normal saline. PROCEDURE INDICATION: Chronic low back pain secondary to Facet arthropathy unresponsive to conservative treatment. PROCEDURE DESCRIPTION: the patient was seen and identified in the preop holding area , risks and benefits and possible complications of the procedure and alternative were discussed with the patient, and the patient agreed to proceed with the procedure and signed the consent IV was started and vital signs monitored during the procedure and fluoroscopy was used to maximize the benefit and accuracy of the needle placement, and sedation was given to decrease patient anxiety, patient was taken to the procedure room and placed in prone position vital signs monitored in the back prepped with chlorhexidine X3 then under strict sterile technique using a right oblique fluoroscopy ,the junction of the transverse process and the superior articulating process of the right L3- 4 , L4- 5, and L5-S1 vertebra which corresponding to the fluoroscopy image of the eye of the Ha dog on the block side for the medial branches and subsequently , after local infiltration of skin and subcu tissuies with Ropivacaine 0.5 % , one mL at each level , then 22-gauge 5 inches long Quincke-type needles , 3 needle was used , each one of them placed at the junction of the base of the transverse process and the superior articular process at the appropriate level, and the needle was advanced until the periosteum contacted, needle placement confirmed with AP oblique and lateral view and after appropriate needle placement confirmed, and after negative aspiration for heme and CSF and there was no paresthesia 1-1/2 mL of Ropivacaine 0.5% mixed with 20 mg Kenalog , then half mL injected at each level after negative aspiration the needle subsequently removed and the same procedure repeated for the left side at left side at L3-4, L4- 5 and L5- S1 levels. At the end of the procedure and the needles removed and a bandage applied after the skin was cleaned the cleaning solution patient taken to recovery room in stable condition and monitors in the recovery room for 20-30 minutes and discharged home in stable condition after discharge criteria met and patient will follow up with the pain clinic in 2-4 weeks
[2018-06-21 07:44] VITALS: BP 106/62; PULSE 68; RESP 18
--- NOTE | 2018-06-21 08:55 | FL ---
EXAMINATION TYPE: FL guided pain mgmt statistic DATE OF EXAM: 06/21/2018 HISTORY: Flouroscopy time 10 seconds of fluoroscopy provided. IMPRESSION: 1. Fluoroscopy time.
== END | disposition home or self-care (01) ==
LOC: ORPAIN 06:11
PROVIDERS: ATTEND Specialist
DX: M47.816 Spondylosis without myelopathy or radiculopathy, lumbar region (principal); G89.29 Other chronic pain; M51.36 Other intervertebral disc degeneration, lumbar region; M46.96 Unspecified inflammatory spondylopathy, lumbar region; E11.9 Type 2 diabetes mellitus without complications; Z88.0 Allergy status to penicillin
CPT/HCPCS: 64493; 64494; 64495; J2250; J3301; J3010; 99152

== ENCOUNTER 2018-07-05 06:30 | Day surgery (SDC) | payer MEDICAID ==
[2018-07-02 08:56] VITALS: BMI 44.3
[~2018-07-05 06:30] MED LIST changes: +LACTATED RINGERS 1,000 ML IV ONE; +LIDOCAINE 1% 20 ML VIAL (10MG/ML) FOR IV START INTRADERMA ONE; -SODIUM CHLORIDE 0.9% 500 ML 500 ML IV ONE
[2018-07-05 06:47] VITALS: RESP 18; TEMP 98.1
[2018-07-05 07:09] LABS: Glucose,Whole Blood 141 mg/dL (75-99)
--- NOTE | 2018-07-05 07:54 | P.PCN ---
Date of Procedure: 07/05/18 Procedure(s) Performed: PREOPERATIVE DIAGNOSIS : 1- Lumbar spondylosis with Facet Arthropathy without myelopathy . 2- Lumber degenerative disc disease POSTOPERATIVE DIAGNOSIS: 1- Lumbar spondylosis with Facet Arthropathy without myelopathy . 2- Lumber degenerative disc disease PROCEDURE: Diagnostic bilateral L3 -4 , L4 -5 , and L5-S1 medial branch block under fluoroscopy ANESTHESIA: Local with Ropivacain 0.5 % 6 ml , moderate sedation with intravenous Versed 2 mg and Fentanyl 50 mcg. EBL: Minimal COMPLICATION: None. IV FLUIDS: 100 mL of normal saline. PROCEDURE INDICATION: Chronic low back pain secondary to Facet arthropathy unresponsive to conservative treatment. PROCEDURE DESCRIPTION: the patient was seen and identified in the preop holding area , risks and benefits and possible complications of the procedure and alternative were discussed with the patient, and the patient agreed to proceed with the procedure and signed the consent IV was started and vital signs monitored during the procedure and fluoroscopy was used to maximize the benefit and accuracy of the needle placement, and sedation was given to decrease patient anxiety, patient was taken to the procedure room and placed in prone position vital signs monitored in the back prepped with chlorhexidine X3 then under strict sterile technique using a right oblique fluoroscopy ,the junction of the transverse process and the superior articulating process of the right L3- 4 , L4- 5, and L5-S1 vertebra which corresponding to the fluoroscopy image of the eye of the Ha dog on the block side for the medial branches and subsequently , after local infiltration of skin and subcu tissuies with Ropivacaine 0.5 % , one mL at each level , then 22-gauge 5 inches long Quincke-type needles , 3 needle was used , each one of them placed at the junction of the base of the transverse process and the superior articular process at the appropriate level, and the needle was advanced until the periosteum contacted, needle placement confirmed with AP oblique and lateral view and after appropriate needle placement confirmed, and after negative aspiration for heme and CSF and there was no paresthesia 1-1/2 mL of Ropivacaine 0.5% mixed with 20 mg Kenalog , then half mL injected at each level after negative aspiration the needle subsequently removed and the same procedure repeated for the left side at left side at L3-4, L4- 5 and L5- S1 levels. At the end of the procedure and the needles removed and a bandage applied after the skin was cleaned the cleaning solution patient taken to recovery room in stable condition and monitors in the recovery room for 20-30 minutes and discharged home in stable condition after discharge criteria met and patient will follow up with the pain clinic in 2-4 weeks
[2018-07-05 08:16] VITALS: BP 114/59; PULSE 79
[2018-07-05] MEDS ORDERED: IV FLUID CONTINUATION 1,000 ML IV ONE (08:23)
--- NOTE | 2018-07-05 08:32 | FL ---
EXAMINATION TYPE: FL guided pain mgmt statistic DATE OF EXAM: 07/05/2018 HISTORY: Flouroscopy time 26 seconds of fluoroscopy provided. IMPRESSION: 1. Fluoroscopy time.
== END 2018-07-05 08:31 | disposition home or self-care (01) ==
LOC: ORPAIN 06:30
PROVIDERS: ATTEND Specialist
DX: M47.816 Spondylosis without myelopathy or radiculopathy, lumbar region (principal); G89.29 Other chronic pain; M51.36 Other intervertebral disc degeneration, lumbar region; I10 Essential (primary) hypertension; E11.9 Type 2 diabetes mellitus without complications; Z88.0 Allergy status to penicillin
CPT/HCPCS: 64493; 64494; 64495; J2250; J3301; J3010; 99152

== ENCOUNTER → 2018-08-05 | Outpatient (CLI) | payer MEDICAID ==
[2018-08-05 14:17] VITALS: BP 109/73; PULSE 80; RESP 16
--- NOTE | 2018-08-05 14:28 | P.PN ---
Subjective Progress Note Date: 08/05/18 Mr. Martinez is a 49-year-old gentleman presents today for follow-up exam. He had successful medial branch blocks 2 recently. He reports his pain went from 8-0 throughout the day. He reports that his pain is significant better after that but has returned after diagnostic injections. He is requesting to have a lumbar radiofrequency ablation done as soon as possible. He reports pain across his low back and sometimes into his buttocks. He reports pain is worse with bending and extending his lumbar spine. Significant radicular symptoms in a dermatomal fashion. He continues to use his medications as prescribed by his other doctor and uses ibuprofen as needed. Objective - Vital Signs Vital signs: Vital Signs Temp Pulse 80 08/05/18 14:12 Resp 16 08/05/18 14:12 BP 109/73 08/05/18 14:12 Pulse Ox 95 08/05/18 14:12 Intake & Output 08/04/18 08/05/18 08/05/18 18:59 06:59 18:59 Weight 127.006 kg - Exam General: Awake and alert oriented 3 no distress Respiratory exam: No audible wheezing no accessory muscle usage Cardiovascular exam: regular rate, palpable bilateral pulses, no lower extremity edema Abdominal exam: No distention nontender to palpation Cervical spine: Normal alignment, Spurling's negative, facet loading negative Lumbar spine: Loss of lumbar lordosis, normal alignment, tender to palpation over bilateral paraspinal muscles, facet loading is positive bilaterally. Straight leg raise is negative. Sacroiliac joints: Nontender to palpation, ZOË is negative, Gaenselon negative Neuro exam: Normal sensation in bilateral upper extremities, deep tendon reflexes are 2+ bilateral upper extremities. Normal sensation in bilateral lower extremities. Deep tendon reflexes are 2+ in lower extremities Psych exam: Cooperative, appropriate mood Assessment and Plan Assessment: #1 Lumbar spondylosis without myelopathy #2 obesity Plan: Plan is to proceed with a lumbar radiofrequency ablation of the L3-L4, L4-L5, L5 -S1. We will begin with the right side and then repeat the left side 2 weeks later. I've also given a refill for ibuprofen 800 mg to use only as needed. I' ve discussed with him the risks and benefits of long-term use of NSAIDs advise him not to take them more than once or twice a day as needed. Advise and stay hydrated while using the medications.
== END | disposition home or self-care (01) ==
LOC: PNWHC3 13:59
PROVIDERS: ATTEND Hospitalist
DX: M47.816 Spondylosis without myelopathy or radiculopathy, lumbar region (principal); E66.9 Obesity, unspecified; Z68.41 Body mass index [BMI] 40.0-44.9, adult; Z79.1 Long term (current) use of non-steroidal anti-inflammatories (NSAID)
CPT/HCPCS: 99211

== ENCOUNTER 2018-08-12 07:57 | Day surgery (SDC) | payer MEDICAID ==
[2018-08-11 10:19] VITALS: BMI 41.3
[2018-08-12] MEDS ORDERED: SODIUM CHLORIDE 0.9% 500 ML 500 ML IV SCH (08:10)
[2018-08-12] MEDS ORDERED: LACTATED RINGERS 1,000 ML IV ONE (08:22)
[2018-08-12] MEDS ORDERED: LIDOCAINE 1% 20 ML VIAL (10MG/ML) FOR IV START INTRADERMA ONE (08:22)
[2018-08-12 08:28] VITALS: TEMP 97.7
[2018-08-12 08:28] LABS: Glucose,Whole Blood 139 mg/dL (75-99)
--- NOTE | 2018-08-12 09:11 | P.PCN ---
Date of Procedure: 08/12/18 Procedure(s) Performed: PREOPERATIVE DIAGNOSIS: 1-Lumbar Spondylosis with Facet Arthropathy without myelopathy. 2- Lumber degenerative disc disease POSTOPERATIVE DIAGNOSIS: 1- Lumbar Spondylosis with Facet Arthropathy without myelopathy. 2- Lumber degenerative disc disease PROCEDURES : Right Radiofrequency thermocoagulation, L3-L4, L4-L5, and L5-S1 medial branch, with fluoroscopic guidance ANESTHESIA: Moderate sedation with intravenous versed 2 mg and fentaneyl 100 mcg, and local infiltration with Ropivacaine 0.5 % . EBL: Minimal PROCEDURE INDICATION: The patient with low back pain secondary to lumbar facet arthropathy who had more than 50% relief of her pain with previous diagnostic lumbar medial branch block with bupivacaine. PROCEDURE DESCRIPTION / TECHNIQUE: The patient was seen and identified in the preoperative area. Risks, benefits, complications, including but not limited to risk of infection ,bleeding , allergic reactions to the medications and no complete pain releife , and alternatives were discussed with the patient, the patient agreed to proceed with the procedure and signed the consent. IV was started. Vital signs remained stable throughout the procedure. Patient was taken to the OR and time out was completed. The patient was placed in the prone position on the procedure table. The lumber area was prepped and draped in the usual sterile fashion. . Vital signs were closely monitored during the procedure .IV sedation was used during the procedure to decrease patients anxiety. Using AP and then oblique fluoroscopy, the ``eye of the Ha dog corresponding to the connection between the superior and transverse articular processes of right L3, L4, and L5 were identified, marked, and localized with 1% lidocaine. Subsequently, a 18 -sl radiofrequency cannula with a 10- mm active tip was advanced guided by fluoroscopy to each of the``eyes of the Ha dog at right L3, L4, and L5. Each site then underwent sensory testing at 50 Hz and 0 to 1 volt and motor testing at 2.5 Hz and 0 to 3 volt with local stimulation, but no radicular symptoms down the legs. Thereafter the right L3-4, L4-5, and L5-S1 sites underwent radiofrequency thermocoagulation at 80 degrees celsius for 90 seconds after injecting 0.5 ml of PF Ropivacaine 1ml, then after the thermocoagulation done , 1 ml of the block solution containing Depo-Medrol 40 mg and 3 ml of Ropivacaine 0.5% was injected at the right L3-4 , L4-5 , and L5-S1, levels after negative aspiration of CSF and blood and with no paresthesias. Cannulas were retracted while injecting lidocaine 1% until the needle is out. At the end of the procedure, the skin was cleansed and bandages were applied. COMPLICATIONS: No acute complications. DISPOSITION / PLANS: The patient was placed in a supine position and transferred to the recovery area in a stable condition for observation and was discharged from the recovery room after meeting discharge criteria. Home discharge instructions given to the patient by the staff. The patient was reexamined prior to discharge. The patient will schedule a follow up in the clinic in 2-4 weeks.
[2018-08-12] MEDS ORDERED: IV FLUID CONTINUATION 1,000 ML IV ONE (09:19)
[2018-08-12 09:24] LABS: Glucose,Whole Blood 128 mg/dL (75-99)
[2018-08-12 09:49] VITALS: RESP 18
[2018-08-12 09:50] VITALS: BP 122/74; PULSE 75
--- NOTE | 2018-08-12 11:48 | FL ---
Fluoroscopy HISTORY: Pain 12 seconds fluoroscopy time supplied to the referring clinician. 3 intraoperative C-arm images docum ent the procedure. See dictated report from anesthesia.
== END 2018-08-12 09:50 | disposition home or self-care (01) ==
LOC: ORPAIN 07:57
PROVIDERS: ATTEND Specialist
DX: M47.816 Spondylosis without myelopathy or radiculopathy, lumbar region (principal); M51.36 Other intervertebral disc degeneration, lumbar region; I10 Essential (primary) hypertension; E11.9 Type 2 diabetes mellitus without complications; Z88.0 Allergy status to penicillin
CPT/HCPCS: 64635; 64636; J2250; J1030; J3010; 99152

== ENCOUNTER 2018-08-26 06:42 | Day surgery (SDC) | payer MEDICAID ==
[2018-08-26] MEDS ORDERED: SODIUM CHLORIDE 0.9% 500 ML 500 ML IV SCH (06:48)
[2018-08-26 06:56] VITALS: TEMP 97.5
[2018-08-26 07:02] LABS: Glucose,Whole Blood 110 mg/dL (75-99)
[2018-08-26] MEDS ORDERED: LIDOCAINE 1% 20 ML VIAL (10MG/ML) FOR IV START INTRADERMA ONE (07:03)
[2018-08-26] MEDS ORDERED: LACTATED RINGERS 1,000 ML IV ONE (07:03)
--- NOTE | 2018-08-26 08:07 | P.PCN ---
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 2- Lumber degenerative disc disease. POSTOPERATIVE DIAGNOSIS: 1- Lumbar Spondylosis with Facet Arthropathy without myelopathy. 2- Lumber degenerative disc disease. PROCEDURES : Left Radiofrequency thermocoagulation, L3-L4, L4-L5, and L5-S1 medial branch, with fluoroscopic guidance. ANESTHESIA: Moderate sedation with intravenous versed 2 mg and fentaneyl 100 mcg, and local infiltration with Ropivacaine 0.5 % . EBL: Minimal PROCEDURE INDICATION: The patient with low back pain secondary to lumbar facet arthropathy who had more than 50% relief of her pain with previous diagnostic lumbar medial branch block with bupivacaine. PROCEDURE DESCRIPTION / TECHNIQUE: The patient was seen and identified in the preoperative area. Risks, benefits, complications, including but not limited to risk of infection ,bleeding , allergic reactions to the medications and no complete pain releife , and alternatives were discussed with the patient, the patient agreed to proceed with the procedure and signed the consent. IV was started. Vital signs remained stable throughout the procedure. Patient was taken to the OR and time out was completed. The patient was placed in the prone position on the procedure table. The lumber area was prepped and draped in the usual sterile fashion. . Vital signs were closely monitored during the procedure .IV sedation was used during the procedure to decrease patients anxiety. Using AP and then oblique fluoroscopy, the ``eye of the Ha dog corresponding to the connection between the superior and transverse articular processes of Left L3, L4, and L5 were identified, marked, and localized with 1 % lidocaine. Subsequently, a [id number] radiofrequency cannula with a 10- mm active tip was advanced guided by fluoroscopy to each of the``eyes of the Ha dog at Left L3, L4, and L5. Each site then underwent sensory testing at 50 Hz and 0 to 1 volt and motor testing at 2.5 Hz and 0 to 3 volt with local stimulation, but no radicular symptoms down the legs. Thereafter the Left L3-4, L4-5, and L5-S1 sites underwent radiofrequency thermocoagulation at 80 degrees celsius for 90 seconds after injecting 0.5 ml of PF Ropivacaine 1ml, then after the thermocoagulation done , 1 ml of the block solution containing Depo-Medrol 40 mg and 3 ml of Ropivacaine 0.5% was injected at the Left L3-4 , L4-5 , and L5-S1, levels after negative aspiration of CSF and blood and with no paresthesias. Cannulas were retracted while injecting lidocaine 1% until the needle is out. At the end of the procedure, the skin was cleansed and bandages were applied. COMPLICATIONS: No acute complications. DISPOSITION / PLANS: The patient was placed in a supine position and transferred to the recovery area in a stable condition for observation and was discharged from the recovery room after meeting discharge criteria. Home discharge instructions given to the patient by the staff. The patient was reexamined prior to discharge. The patient will schedule a follow up in the clinic in 2-4 weeks.
[2018-08-26] MEDS ORDERED: IV FLUID CONTINUATION 1,000 ML IV ONE (08:12)
[2018-08-26 08:17] VITALS: RESP 16
[2018-08-26 08:26] VITALS: BP 104/57; PULSE 63
--- NOTE | 2018-08-26 09:05 | FL ---
EXAMINATION TYPE: FL guided pain mgmt statistic DATE OF EXAM: 08/26/2018 HISTORY: Flouroscopy time 37 seconds of fluoroscopy provided. IMPRESSION: 1. Fluoroscopy time.
== END 2018-08-26 09:00 | disposition home or self-care (01) ==
LOC: ORPAIN 06:42
PROVIDERS: ATTEND Specialist
DX: M47.816 Spondylosis without myelopathy or radiculopathy, lumbar region (principal); M51.36 Other intervertebral disc degeneration, lumbar region; Z88.0 Allergy status to penicillin
CPT/HCPCS: 64635; 64636 ×2; J2250; J1030; J3010; 99152; 99153

== ENCOUNTER → 2018-09-30 | Outpatient (CLI) | payer MEDICAID ==
[2018-09-30 12:10] VITALS: BP 148/88; PULSE 79; RESP 16
--- NOTE | 2018-09-30 12:20 | P.PAINPG ---
Subjective Progress Note Date: 09/30/18 Principal diagnosis: Lumbar spondylosis This very pleasant 57-year-old gentleman with a history of intractable low back pain. He is undergone lumbar radio frequency ablation and reports substantial relief of his symptoms. He currently is working to get off his pain medications and takes ibuprofen 800 sporadically. He finds this more helpful than his opiates. He denies any new complaints. Objective - Vital Signs Vital signs: Vital Signs Temp Pulse 79 09/30/18 12:06 Resp 16 09/30/18 12:06 BP 148/88 09/30/18 12:06 Pulse Ox Intake & Output 09/29/18 09/30/18 09/30/18 18:59 06:59 18:59 Weight 129.274 kg - Exam General: The patient is alert and oriented. Patient is not sedated Patient answers all question appropriately. Cardiac: Heart is regular in rate and rhythm Respiratory: Clear to auscultation. No audible wheezes. Abdomen: Soft nontender nondistended. Musculoskeletal: Strength is normal bilaterally. Sensation is normal bilaterally. Straight leg raise is negative bilaterally. Facet loading maneuvers are minimally positive today. Neurological: Reflexes are preserved and symmetric bilaterally. Assessment and Plan (1) Lumbar spondylosis Current Visit: Yes Status: Acute Code(s): M47.816 - SPONDYLOSIS W/O MYELOPATHY OR RADICULOPATHY, LUMBAR REGION SNOMED Code(s): 399821451 Plan: Plan of Care 1. Medications: I have refilled the patient's prescription for Motrin 800. I have counseled him on the risks and benefits of this medication. I've advised him to use it sparingly to treat his low back pain. He understands my concerns and agrees to comply with this plan of care. 2. Interventions: Patient can schedule repeat of radio frequency ablation on an as-needed basis. 3. Referrals: None 4. Testing: None 5. Follow-up: As needed PQRS Measure Charge Sheet Measure #130: Documentation of Current Meds in Medical Chart: Patient not eligible for medications to be documented Measure #226: Tobacco Use: Screen & Cessation Intervention: Pt not a tobacco user Measure #111: Pneumonia Vaccination: Pneumococcal vaccine NOT administered or previously given Measure #47: Advance Care Plan: Advance care planning discussed & documented, pt chose/unable to give Measure #412: Opioid Treatment Agreement: No documentation of signed opioid treatment agreement Measure #408: Opioid Therapy Follow-up Evaluation: Patient had NO f/u eval minimum every 3 months during opioid therapy Measure #317: Preventitive Care & Scrn High Bld Press & F/U: Normal blood pressure, f/u not required Measure #128: Body Mass Index (BMI) Screening & Follow-up: BMI documented ABOVE normal parameters - f/u documented Measure #131: Pain Assessment & Follow-up: Pain positive & plan documented Measure #431: Unhealthy Alcohol Use Preventative Care & Scrn: Patient not identified as an unhealthy alcohol user PQRS Narrative: Smoking Status Never smoker Do You Want the Pneumonia No Vaccine AT THIS TIME? Blood Pressure 148/88 Scale Used Numeric (1 - 10) Hx Alcohol Use (MH) No Home Medications: Ambulatory Orders Hydrocodone/Acetaminophen [Hydrocodon-Acetaminophen 5-325] 1 tab PO HS PRN 10/29/15 Lisinopril [Zestril] 10 mg PO DAILY 10/29/15 metFORMIN HCL [Glucophage] 850 mg PO BID 10/29/15 traMADol HCL [Tramadol HCl] 50 - 100 mg PO Q8HR PRN 10/29/15 Citalopram Hydrobromide [CeleXA] 20 mg PO DAILY 04/14/18 Esomeprazole Magnesium [NexIUM] 20 mg PO DAILY 04/14/18 Insulin Glargine [Lantus] 26 unit SQ HS 04/14/18 Pioglitazone [Actos] 30 mg PO DAILY 04/14/18 Simvastatin [Zocor] 40 mg PO HS 04/14/18 Ibuprofen [Motrin] 800 mg PO Q8HR PRN 06/02/18 Controlled Substance Measures - Controlled Substance Measures Is patient prescribed a controlled substance at discharge?: No
== END | disposition home or self-care (01) ==
LOC: PNWHC3 11:57
PROVIDERS: ATTEND Pain Medicine Pain Medicine
DX: M47.816 Spondylosis without myelopathy or radiculopathy, lumbar region (principal); Z79.1 Long term (current) use of non-steroidal anti-inflammatories (NSAID); Z79.891 Long term (current) use of opiate analgesic
CPT/HCPCS: 99211

== ENCOUNTER → 2019-05-31 | Outpatient (CLI) | payer MEDICAID ==
--- NOTE | 2019-05-31 18:33 | PN ---
PROGRESS NOTE SLEEP CENTER PROGRESS NOTE: This is a 58-year-old male patient coming in for an annual visit regarding obstructive sleep apnea. The patient is currently on a CPAP pressure of 11 cm of water. The patient is using a [employer] Respironics unit. His weight is down by around 6 pounds since his last evaluation; currently the patient is down to 292. He is averaging about 7 hours and 42 minutes of CPAP use per night and his CPAP use for more than 4 hours is 100%. He is using a Cardenas FX nose mask. No other new complaints otherwise for now. [place] score is down to 3. No hypertension. No nasal congestion. No CHF. No cardiac arrhythmias. REVIEW OF SYSTEMS: Fourteen-point review of systems was done. Positive findings were all mentioned above in the history of present illness. PHYSICAL EXAMINATION: VITAL SIGNS: BP is 119/68, pulse 82, respirations 16, temperature 98.2, saturation 95% on room air. Height is 5 feet 8 inches, weight 292. BMI is 44.3. [place] score is 3. GENERAL APPEARANCE: Calm, comfortable. HEAD: Atraumatic, normocephalic. NECK: Supple. There is no JVD. No goiter or neck masses. LUNGS: Clear to auscultation. HEART: Heart sounds are regular rate and rhythm. Normal S1, S2. No S3, S4. No murmurs. ABDOMEN: Soft, nontender. No organomegaly. EXTREMITIES: No edema. No cyanosis or clubbing. NEUROLOGIC: Awake and alert. There are no focal neurological deficits. PSYCHIATRIC: Negative for anxiety or depression. IMPRESSION: 1. Obstructive sleep apnea, currently on CPAP with a pressure of 11 cm of water. 2. Hypersomnia, recovered. [place] score is down to 3. 3. Obesity with a body mass index of 44.3. The patient has lost weight and currently is down to 292. 4. Hypertension. PLAN: 1. Encourage weight loss. 2. Continue CPAP therapy at the same level of pressure. 3. Refills given for the mask, tubing and filters. 4. Encourage further weight loss. 5. See me back in a year's time in followup; earlier if needed. Treatment is successful for now. MMODL / IJN: [id number] /
== END | disposition home or self-care (01) ==
LOC: SLEEP 16:58
PROVIDERS: ATTEND Internal Medicine Critical Care Medicine
DX: G47.33 Obstructive sleep apnea (adult) (pediatric) (principal); E66.9 Obesity, unspecified; Z68.41 Body mass index [BMI] 40.0-44.9, adult; I10 Essential (primary) hypertension; Z99.89 Dependence on other enabling machines and devices

== ENCOUNTER → 2019-07-29 | Outpatient (CLI) | payer MEDICAID ==
[2019-07-29 12:12] LABS: Appearance,Urine Clear (Clear); Bilirubin,Urine Negative (Negative); Blood,Urine Small (Negative); Color,Urine Yellow; Glucose,Urine (UA) Negative (Negative); Ketones,Urine Negative (Negative); Leukocyte Esterase,Urine Negative (Negative); Mucus,Urine Occasional /hpf; Nitrite,Urine Negative (Negative); PH, Urine 5.5 (5.0-8.0); Protein,Urine Trace (Negative); RBC,Urine 2 /hpf (0-5); Specific Gravity,Urine 1.028 (1.001-1.035); Urobilinogen,Urine <2.0 mg/dL (<2.0); WBC,Urine <1 /hpf (0-5)
[2019-07-29 17:16] LABS: African American GFR (CKD) 84.7 (60.0-200.0); Albumin 4.3 g/dL (3.80-4.90); Albumin/Globulin Ratio 2.05 (1.60-3.17); Anion Gap 9.2 mmol/L (4.00-12.00); BUN/Creat Ratio 17.27 Ratio (12.00-20.00); Calcium 9.4 mg/dL (8.7-10.3); Carbon Dioxide 26.8 mmol/L (21.6-31.8); Chol/HDL Ratio 3.95; Globulin 2.1 g/dL (1.6-3.3); Non-African American GFR(CKD) 73.1 (60.0-200.0); Potassium 4.6 mmol/L (3.5-5.5); Total Bilirubin 0.3 mg/dL (0.2-1.2); Total Protein 6.4 g/dL (6.2-8.2)
[2019-07-29 19:05] LABS: Hemoglobin A1C 7.5 % (4.0-6.0)
== END | disposition home or self-care (01) ==
LOC: LABWHC1 10:47
PROVIDERS: ATTEND Family Medicine
DX: Z00.01 Encounter for general adult medical examination with abnormal findings (principal); E11.65 Type 2 diabetes mellitus with hyperglycemia; Z13.9 Encounter for screening, unspecified
CPT/HCPCS: 36415; 80053; 80061; 81001; 83036; 84153; 86803

== ENCOUNTER → 2020-02-20 | Outpatient (CLI) | payer MEDICAID ==
[2020-02-20 11:13] LABS: Basophils % (A) 1 %; Eosinophils # (A) 0.1 k/uL (0-0.7); Eosinophils % (A) 2 %; HCT 42.9 % (39.0-53.0); HGB 14.1 gm/dL (13.0-17.5); Lymphocytes # (A) 1.6 k/uL (1.0-4.8); Lymphocytes % (A) 24 %; MCH 30.9 pg (25.0-35.0); MCV 93.8 fL (80.0-100.0); Mean Platelet Volume 7.7; Monocytes # (A) 0.5 k/uL (0-1.0); Monocytes % (A) 7 %; Neutrophils # (A) 4.2 k/uL (1.3-7.7); Neutrophils % (A) 65 %; Platelet Count 237 k/uL (150-450); RBC 4.57 m/uL (4.30-5.90); RDW 12.4 % (11.5-15.5); WBC 6.5 k/uL (3.8-10.6)
[2020-02-20 19:27] LABS: Hemoglobin A1C 7.3 % (4.0-6.0)
[2020-02-20 21:25] LABS: Urine Creatinine 174.4 mg/dL
[2020-02-20 21:33] LABS: African American GFR (CKD) 84.1 (60.0-200.0); Albumin 4.3 g/dL (3.80-4.90); Albumin/Globulin Ratio 1.72 (1.60-3.17); Anion Gap 9.7 mmol/L (4.00-12.00); BUN/Creat Ratio 17.27 Ratio (12.00-20.00); Calcium 9.6 mg/dL (8.7-10.3); Carbon Dioxide 27.3 mmol/L (21.6-31.8); Chol/HDL Ratio 3.64; Globulin 2.5 g/dL (1.6-3.3); LDL Cholesterol,Calculated 71.4 mg/dL (0.0-131.0); Non-African American GFR(CKD) 72.6 (60.0-200.0); Potassium 4.7 mmol/L (3.5-5.5); Total Bilirubin 0.3 mg/dL (0.2-1.2); Total Protein 6.8 g/dL (6.2-8.2); VLDL Calculation 31.6 mg/dL (5.00-40.00)
== END | disposition home or self-care (01) ==
LOC: LABWHC1 09:02
PROVIDERS: ATTEND Family Medicine
DX: E11.65 Type 2 diabetes mellitus with hyperglycemia (principal)
CPT/HCPCS: 36415; 80053; 80061; 82043; 82570; 83036; 84443; 85025

== ENCOUNTER → 2020-08-10 | Outpatient (CLI) | payer MEDICAID ==
[2020-08-10 15:40] LABS: African American GFR (CKD) 75.7 (60.0-200.0); Albumin 4.1 g/dL (3.80-4.90); Albumin/Globulin Ratio 1.95 (1.60-3.17); Anion Gap 6.3 mmol/L (4.00-12.00); Calcium 9.3 mg/dL (8.7-10.3); Carbon Dioxide 30.7 mmol/L (21.6-31.8); Chol/HDL Ratio 4.31; Globulin 2.1 g/dL (1.6-3.3); LDL Cholesterol,Calculated 81.2 mg/dL (0.0-131.0); Non-African American GFR(CKD) 65.3 (60.0-200.0); Potassium 4.6 mmol/L (3.5-5.5); Total Bilirubin 0.4 mg/dL (0.2-1.2); Total Protein 6.2 g/dL (6.2-8.2); VLDL Calculation 34.8 mg/dL (5.00-40.00)
[2020-08-10 15:49] LABS: Prostate Specific Antigen 1.1 ng/mL (0.0-4.5)
[2020-08-10 18:45] LABS: Hemoglobin A1C 8.4 % (4.0-6.0)
== END | disposition home or self-care (01) ==
LOC: LABWHC1 10:10
PROVIDERS: ATTEND Family Medicine
DX: Z00.01 Encounter for general adult medical examination with abnormal findings (principal); E11.65 Type 2 diabetes mellitus with hyperglycemia
CPT/HCPCS: 36415; 80053; 80061; 83036; 84153

== ENCOUNTER 2020-11-01 06:46 | Emergency (ER) | payer MEDICAID ==
[2020-11-01] MEDS ORDERED: ACETAMINOPHEN TAB 500 MG TAB PO STA (07:14)
--- NOTE | 2020-11-01 07:21 | ED ---
General Adult HPI - General Chief complaint: Shortness of Breath Stated complaint: SOB Time Seen by Provider: 11/01/20 06:50 Source: patient, RN notes reviewed, old records reviewed Mode of arrival: ambulatory Limitations: no limitations - History of Present Illness Initial comments: This is a 59-year-old male who presents emergency Department complaining of not feeling well and being weak for 3-4 days. Patient states he also feels somewhat short of breath per patient states he has a history of diabetes. Patient states he has exposure to cold because his son was diagnosed with it. Patient denies any diarrhea. Patient denies abdominal pain. Patient denies chest pain. Patient denies palpitations. Patient states he does have a cough that is dry. Patient states she's felt hot but he does get the chills as well. Patient states he did not take his temperature has not taken any Motrin or Tylenol. Patient denies any leg swelling or calf tenderness. - Related Data Home Medications Medication Instructions Recorded Confirmed Hydrocodone/Acetaminophen 1 tab PO HS PRN 10/29/15 09/30/18 [Hydrocodon-Acetaminophen 5-325] lisinopriL [Zestril] 10 mg PO DAILY 10/29/15 09/30/18 metFORMIN HCL [Glucophage] 850 mg PO BID 10/29/15 09/30/18 traMADol HCL [Tramadol HCl] 50 - 100 mg PO Q8HR PRN 10/29/15 09/30/18 Citalopram Hydrobromide [CeleXA] 20 mg PO DAILY 04/14/18 09/30/18 Esomeprazole Magnesium [NexIUM] 20 mg PO DAILY 04/14/18 09/30/18 Insulin Glargine [Lantus] 26 unit SQ HS 04/14/18 09/30/18 Pioglitazone [Actos] 30 mg PO DAILY 04/14/18 09/30/18 Simvastatin [Zocor] 40 mg PO HS 04/14/18 09/30/18 Ibuprofen [Motrin] 800 mg PO Q8HR PRN 06/02/18 09/30/18 Allergies Allergy/AdvReac Type Severity Reaction Status Date / Time Penicillins Allergy Swelling Verified 11/01/20 06:54 Review of Systems ROS Statement: Those systems with pertinent positive or pertinent negative responses have been documented in the HPI. ROS Other: All systems not noted in ROS Statement are negative. Past Medical History Past Medical History: Diabetes Mellitus, Hyperlipidemia, Hypertension Additional Past Medical History / Comment(s): Low iron History of Any Multi-Drug Resistant Organisms: None Reported Past Surgical History: Orthopedic Surgery Additional Past Surgical History / Comment(s): knee arthroscopy, pain clinic procedures Past Anesthesia/Blood Transfusion Reactions: No Reported Reaction Past Psychological History: No Psychological Hx Reported Smoking Status: Never smoker Past Alcohol Use History: None Reported Past Drug Use History: None Reported - Past Family History Father Family Medical History: Cancer Mother Family Medical History: No Reported History General Exam - General Exam Comments Initial Comments: GENERAL: Patient is well-developed and well-nourished. Patient is nontoxic and well- hydrated and is in mild distress. Patient is diaphoretic. ENT: Neck is soft and supple. No significant lymphadenopathy is noted. Oropharynx is clear. Moist mucous membranes. Neck has full range of motion without eliciting any pain. EYES: The sclera were anicteric and conjunctiva were pink and moist. Extraocular movements were intact and pupils were equal round and reactive to light. Eyelids were unremarkable. PULMONARY: Unlabored respirations. Good breath sounds bilaterally. No audible rales rhonchi or wheezing was noted. CARDIOVASCULAR: There is a regular rate and rhythm without any murmurs gallops or rubs. ABDOMEN: Soft and nontender with normal bowel sounds. SKIN: Skin is clear with no lesions or rashes and otherwise unremarkable. NEUROLOGIC: Patient is alert and oriented x3. Cranial nerves II through XII are grossly intact. Motor and sensory are also intact. Normal speech, volume and content. Symmetrical smile. MUSCULOSKELETAL: Normal extremities with adequate strength and full range of motion. LYMPHATICS: No significant lymphadenopathy is noted PSYCHIATRIC: Normal psychiatric evaluation. Limitations: no limitations Course Vital Signs 11/01/20 11/01/20 11/01/20 06:50 07:03 08:01 Temperature 98.3 F Pulse Rate 104 H 101 H Respiratory 24 25 H 20 Rate Blood Pressure 115/72 121/80 O2 Sat by Pulse 91 L 96 Oximetry Medical Decision Making - Medical Decision Making EKG shows normal sinus rhythm at 91 bpm [place] interval 230 QRS is 98 QT interval 360 QTC is 452. EKG shows no ST segment elevation or depression. Patient's chest x-ray shows bilateral opacifications in lung consistent with "pneumonia. Patient's code pneumonia test came back positive. Patient is receiving monoclonal antibodies. Patient is continuing to oxygenate well he will be discharged home. - Lab Data Result diagrams: 11/01/20 07:22 11/01/20 07:22 Lab Results 11/01/20 11/01/20 11/01/20 Range/Units 07:22 07:22 07:22 WBC 6.6 (3.8-10.6) k/uL RBC 4.57 (4.30-5.90) m/uL Hgb 14.0 (13.0-17.5) gm/dL Hct 39.9 (39.0-53.0) % MCV 87.3 (80.0-100.0) fL MCH 30.7 (25.0-35.0) pg MCHC 35.1 (31.0-37.0) g/dL RDW 12.3 (11.5-15.5) % Plt Count 256 (150-450) k/uL MPV 7.0 Neutrophils % 76 % Lymphocytes % 16 % Monocytes % 5 % Eosinophils % 0 % Basophils % 0 % Neutrophils # 5.0 (1.3-7.7) k/uL Lymphocytes # 1.1 (1.0-4.8) k/uL Monocytes # 0.3 (0-1.0) k/uL Eosinophils # 0.0 (0-0.7) k/uL Basophils # 0.0 (0-0.2) k/uL PT 10.2 (9.0-12.0) sec INR 0.9 (<1.2) APTT 23.7 (22.0-30.0) sec D-Dimer 0.53 (<0.60) mg/L FEU Sodium 133 L (137-145) mmol/L Potassium 4.2 (3.5-5.1) mmol/L Chloride 99 (98-107) mmol/L Carbon Dioxide 23 (22-30) mmol/L Anion Gap 11 mmol/L BUN 22 H (9-20) mg/dL Creatinine 1.22 (0.66-1.25) mg/dL Est GFR (CKD-EPI)AfAm 74 (>60 ml/min/1.73 sqM) Est GFR (CKD-EPI)NonAf 64 (>60 ml/min/1.73 sqM) Glucose 204 H (74-99) mg/dL Plasma Lactic Acid Otmmy (0.7-2.0) mmol/L Calcium 8.5 (8.4-10.2) mg/dL Magnesium 1.4 L (1.6-2.3) mg/dL Total Bilirubin 0.7 (0.2-1.3) mg/dL AST 42 (17-59) U/L ALT 30 (4-49) U/L Alkaline Phosphatase 52 (38-126) U/L Lactate Dehydrogenase 910 H (313-618) U/L C-Reactive Protein 45.7 H (<10.0) mg/L Total Protein 7.1 (6.3-8.2) g/dL Albumin 3.9 (3.5-5.0) g/dL Coronavirus (PCR) (Not Detectd) 11/01/20 11/01/20 Range/Units 07:22 08:00 WBC (3.8-10.6) k/uL RBC (4.30-5.90) m/uL Hgb (13.0-17.5) gm/dL Hct (39.0-53.0) % MCV (80.0-100.0) fL MCH (25.0-35.0) pg MCHC (31.0-37.0) g/dL RDW (11.5-15.5) % Plt Count (150-450) k/uL MPV Neutrophils % % Lymphocytes % % Monocytes % % Eosinophils % % Basophils % % Neutrophils # (1.3-7.7) k/uL Lymphocytes # (1.0-4.8) k/uL Monocytes # (0-1.0) k/uL Eosinophils # (0-0.7) k/uL Basophils # (0-0.2) k/uL PT (9.0-12.0) sec INR (<1.2) APTT (22.0-30.0) sec D-Dimer (<0.60) mg/L FEU Sodium (137-145) mmol/L Potassium (3.5-5.1) mmol/L Chloride (98-107) mmol/L Carbon Dioxide (22-30) mmol/L Anion Gap mmol/L BUN (9-20) mg/dL Creatinine (0.66-1.25) mg/dL Est GFR (CKD-EPI)AfAm (>60 ml/min/1.73 sqM) Est GFR (CKD-EPI)NonAf (>60 ml/min/1.73 sqM) Glucose (74-99) mg/dL Plasma Lactic Acid Otmmy 1.0 (0.7-2.0) mmol/L Calcium (8.4-10.2) mg/dL Magnesium (1.6-2.3) mg/dL Total Bilirubin (0.2-1.3) mg/dL AST (17-59) U/L ALT (4-49) U/L Alkaline Phosphatase (38-126) U/L Lactate Dehydrogenase (313-618) U/L C-Reactive Protein (<10.0) mg/L Total Protein (6.3-8.2) g/dL Albumin (3.5-5.0) g/dL Coronavirus (PCR) Detected A (Not Detectd) Disposition Clinical Impression: Pneumonia due to COVID-19 virus Disposition: HOME SELF-CARE Instructions (If sedation given, give patient instructions): Coronavirus Disease 2019 (COVID-19) Is patient prescribed a controlled substance at d/c from ED?: No Referrals: Austen Mann MD [Primary Care Provider] - 1-2 days Time of Disposition: 10:15
[2020-11-01 07:33] LABS: Basophils % (A) 0 %; Eosinophils % (A) 0 %; HCT 39.9 % (39.0-53.0); Lymphocytes # (A) 1.1 k/uL (1.0-4.8); Lymphocytes % (A) 16 %; MCH 30.7 pg (25.0-35.0); MCHC 35.1 g/dL (31.0-37.0); MCV 87.3 fL (80.0-100.0); Monocytes # (A) 0.3 k/uL (0-1.0); Monocytes % (A) 5 %; Neutrophils % (A) 76 %; Platelet Count 256 k/uL (150-450); RBC 4.57 m/uL (4.30-5.90); RDW 12.3 % (11.5-15.5); WBC 6.6 k/uL (3.8-10.6)
--- NOTE | 2020-11-01 07:40 | XR ---
EXAMINATION TYPE: XR chest 1V portable DATE OF EXAM: 11/01/2020 HISTORY: Shortness of breath. COMPARISON: 01/27/2016 TECHNIQUE: Single view of the chest is submitted. FINDINGS: Demonstrated are scattered senescent parenchymal change. Patchy basilar infiltrates seen felt to reflect underlying pneumonia. The heart is stable. Fixed hiatal hernia noted. Hilar and mediastinal structures are within normal limits. Degenerative changes are seen of the dorsal spine. IMPRESSION: 1. Patchy basilar infiltrates seen felt to reflect underlying pneumonia.
[2020-11-01 07:47] LABS: D-Dimer 0.53 mg/L FEU (<0.60); INR 0.9 (<1.2); Partial Thromboplastin Time 23.7 sec (22.0-30.0); Prothrombin Time 10.2 sec (9.0-12.0)
[2020-11-01 07:50] LABS: Albumin 3.9 g/dL (3.5-5.0); C Reactive Protein 45.7 mg/L (<10.0); Calcium 8.5 mg/dL (8.4-10.2); Magnesium 1.4 mg/dL (1.6-2.3); Potassium 4.2 mmol/L (3.5-5.1); Total Bilirubin 0.7 mg/dL (0.2-1.3); Total Protein 7.1 g/dL (6.3-8.2)
[2020-11-01] MEDS ORDERED: BAMLANIVIMAB (EUA) 700 MG, ETESEVIMAB (EUA) 1,400 MG in SODIUM CHLORIDE 0.9% 50 ML IVPB ONE (10:00)
[2020-11-01 12:02] VITALS: BP 109/75; PULSE 77; RESP 18; TEMP 98.1
[2020-11-01 21:05] LABS: Ferritin 639.6 ng/mL (22.0-322.0)
== END 2020-11-01 11:34 | disposition home or self-care (01) ==
LOC: EC 06:46
DX: U07.1 COVID-19 (principal); J12.82 Pneumonia due to coronavirus disease 2019; E11.9 Type 2 diabetes mellitus without complications; E78.5 Hyperlipidemia, unspecified; I10 Essential (primary) hypertension; Z79.4 Long term (current) use of insulin; Z88.0 Allergy status to penicillin
CPT/HCPCS: 36415; 71045; 80053; 82728; 83605; 83615; 83735; 84145; 85025; 85379; 85610; 85730; 86140; 87040; 87635; 93005; 99285

== ENCOUNTER → 2021-02-09 | Outpatient (CLI) | payer MEDICAID ==
[2021-02-09 16:56] LABS: Basophils # (A) 0.03 X 10*3/uL (0.00-0.10); Basophils % (A) 0.6 %; Eosinophils # (A) 0.13 X 10*3/uL (0.04-0.35); Eosinophils % (A) 2.4 %; HCT 40.8 % (39.6-50.0); HGB 13.2 g/dL (13.0-17.0); Lymphocytes # (A) 1.41 X 10*3/uL (0.90-5.00); MCH 30.1 pg (27.0-32.0); MCHC 32.4 g/dL (32.0-37.0); MCV 92.9 fL (80.0-97.0); Mean Platelet Volume 10.2 fL (9.5-12.2); Monocytes # (A) 0.48 X 10*3/uL (0.20-1.00); Monocytes % (A) 8.9 %; Neutrophils # (A) 3.35 X 10*3/uL (1.80-7.70); Neutrophils % (A) 61.7 %; Platelet Count 233 X 10*3/uL (140-440); RBC 4.39 X 10*6/uL (4.40-5.60); RDW 13.2 % (11.5-14.5); WBC 5.42 X 10*3/uL (4.50-10.00)
[2021-02-09 17:53] LABS: Urine Creatinine 163.9 mg/dL
[2021-02-09 18:18] LABS: African American GFR (CKD) 83.5 (60.0-200.0); Albumin 4.4 g/dL (3.80-4.90); Albumin/Globulin Ratio 1.63 (1.60-3.17); Anion Gap 6.5 mmol/L (4.00-12.00); BUN/Creat Ratio 18.18 Ratio (12.00-20.00); Carbon Dioxide 27.5 mmol/L (21.6-31.8); Chol/HDL Ratio 4.29; Globulin 2.7 g/dL (1.6-3.3); LDL Cholesterol,Calculated 95.6 mg/dL (0.0-131.0); Non-African American GFR(CKD) 72.1 (60.0-200.0); Potassium 4.7 mmol/L (3.5-5.5); Total Bilirubin 0.3 mg/dL (0.3-1.2); Total Protein 7.1 g/dL (6.2-8.2); VLDL Calculation 29.4 mg/dL (5.00-40.00)
[2021-02-09 21:50] LABS: Hemoglobin A1C 6.9 % (4.0-6.0)
== END | disposition home or self-care (01) ==
LOC: LABWHC1 10:18
PROVIDERS: ATTEND Family Medicine
DX: E11.65 Type 2 diabetes mellitus with hyperglycemia (principal)
CPT/HCPCS: 36415; 80053; 80061; 82043; 82570; 83036; 84443; 85025

== ENCOUNTER → 2021-08-31 | Outpatient (CLI) | payer MEDICAID ==
[2021-08-31 16:28] LABS: ALT 26 U/L (10-49); AST 19 U/L (14-35); African American GFR (CKD) 86.4 (60.0-200.0); Albumin/Globulin Ratio 1.29 (1.60-3.17); Alkaline Phosphatase 54 U/L (41-126); BUN/Creat Ratio 15.05 Ratio (12.00-20.00); Blood Urea Nitrogen 16.1 mg/dL (9.0-27.0); Calcium 9.3 mg/dL (8.7-10.3); Carbon Dioxide 26.5 mmol/L (20.0-27.5); Chloride 100 mmol/L (96-109); Globulin 3.1 g/dL (1.6-3.3); Glucose 230 mg/dL (70-110); LDL Cholesterol,Calculated 83.9 mg/dL (0.0-131.0); Non-African American GFR(CKD) 74.5 (60.0-200.0); Potassium 4.8 mmol/L (3.5-5.5); Sodium 137 mmol/L (135-145); Total Protein 7.1 g/dL (6.2-8.2)
== END | disposition home or self-care (01) ==
LOC: LABWHC1 10:35
PROVIDERS: ATTEND Family Medicine
DX: E11.65 Type 2 diabetes mellitus with hyperglycemia (principal)
CPT/HCPCS: 36415; 80053; 80061; 83036

== ENCOUNTER → 2022-02-22 | Outpatient (CLI) | payer MEDICAID ==
[2022-02-22 11:21] LABS: Basophils # (A) 0.03 X 10*3/uL (0.00-0.10); Basophils % (A) 0.5 %; Eosinophils # (A) 0.15 X 10*3/uL (0.04-0.35); Eosinophils % (A) 2.3 %; HGB 13.4 g/dL (13.0-17.0); Immature Grans, Automated 0.3 %; Lymphocytes # (A) 1.77 X 10*3/uL (0.90-5.00); Lymphocytes % (A) 27.2 %; MCH 29.5 pg (27.0-32.0); MCHC 31.2 g/dL (32.0-37.0); MCV 94.5 fL (80.0-97.0); Mean Platelet Volume 9.8 fL (9.5-12.2); Monocytes # (A) 0.52 X 10*3/uL (0.20-1.00); NRBC Per 100 WBC 0 /100 WBCS (0.0-0.0); Neutrophils # (A) 4.02 X 10*3/uL (1.80-7.70); Neutrophils % (A) 61.7 %; Platelet Count 244 X 10*3/uL (140-440); RBC 4.55 X 10*6/uL (4.40-5.60); RDW 13.2 % (11.5-14.5); WBC 6.51 X 10*3/uL (4.50-10.00)
[2022-02-22 11:37] LABS: ALT 28 U/L (10-49); AST 22 U/L (14-35); African American GFR (CKD) 84.8 (60.0-200.0); Albumin 4.1 g/dL (3.8-4.9); Albumin/Globulin Ratio 1.61 (1.60-3.17); Alkaline Phosphatase 49 U/L (41-126); BUN/Creat Ratio 15.74 Ratio (12.00-20.00); Calcium 9.1 mg/dL (8.7-10.3); Carbon Dioxide 28.8 mmol/L (20.0-27.5); Chloride 104 mmol/L (96-109); Chol/HDL Ratio 3.79 Ratio; Globulin 2.5 g/dL (1.6-3.3); Glucose 145 mg/dL (70-110); LDL Cholesterol,Calculated 101.1 mg/dL (0.0-131.0); Non-African American GFR(CKD) 73.2 (60.0-200.0); Potassium 4.5 mmol/L (3.5-5.5); Sodium 142 mmol/L (135-145); Total Protein 6.6 g/dL (6.2-8.2); VLDL Calculation 19.56 mg/dL (5.00-40.00)
== END | disposition home or self-care (01) ==
LOC: LABWHC1 08:39
PROVIDERS: ATTEND Family Medicine
DX: E11.65 Type 2 diabetes mellitus with hyperglycemia (principal)
CPT/HCPCS: 36415; 80053; 80061; 82043; 82570; 83036; 84443; 85025

== ENCOUNTER → 2023-02-27 | Outpatient (CLI) | payer MEDICAID ==
[2023-02-27 16:04] LABS: Basophils # (A) 0.05 X 10*3/uL (0.00-0.10); Basophils % (A) 0.7 %; Eosinophils # (A) 0.23 X 10*3/uL (0.04-0.35); Eosinophils % (A) 3.1 %; HCT 43.2 % (39.6-50.0); Lymphocytes # (A) 1.57 X 10*3/uL (0.90-5.00); Lymphocytes % (A) 21.4 %; MCH 29.8 pg (27.0-32.0); MCHC 32.4 d/dL (32.0-37.0); MCV 91.9 FL (80.0-97.0); Mean Platelet Volume 10.2 FL (9.5-12.2); Monocytes # (A) 0.49 X 10*3/uL (0.20-1.00); Monocytes % (A) 6.7 %; NRBC Per 100 WBC 0 X 10*3/uL (0.00-0.01); Neutrophils # (A) 4.95 X 10*3/uL (1.80-7.70); Neutrophils % (A) 67.7 %; Platelet Count 257 X 10*3/uL (140-440); RDW 12.8 % (11.5-14.5); WBC 7.32 X 10*3/uL (4.50-10.00)
[2023-02-27 17:45] LABS: ALT 51 U/L (10-49); AST 30 U/L (14-35); Albumin 4.7 d/dL (3.8-4.9); Albumin/Globulin Ratio 1.68 Ratio (1.60-3.17); Alkaline Phosphatase 56 U/L (41-126); BUN/Creat Ratio 11.42 Ratio (12.00-20.00); Blood Urea Nitrogen 13.7 mg/dL (9.0-27.0); Calcium 9.8 mg/dL (8.7-10.3); Carbon Dioxide 26.7 mmol/L (21.6-31.8); Chloride 100 mmol/L (96-109); Chol/HDL Ratio 2.99 Ratio; Globulin 2.8 d/dL (1.6-3.3); Glucose 136 mg/dL (70-110); Potassium 5.1 mmol/L (3.5-5.5); Sodium 141 mmol/L (135-145); Total Bilirubin 0.3 mg/dL (0.3-1.2); Total Protein 7.5 d/dL (6.2-8.2)
== END | disposition home or self-care (01) ==
LOC: LABWHC1 11:12
PROVIDERS: ATTEND Family Medicine
DX: E11.65 Type 2 diabetes mellitus with hyperglycemia (principal)
CPT/HCPCS: 36415; 80053; 80061; 82043; 82570; 83036; 84443; 85025

== ENCOUNTER → 2023-06-23 | Outpatient (CLI) | payer MEDICAID ==
--- NOTE | 2023-06-23 14:30 | P.SLEEP ---
History of Present Illness H&P Date: 06/23/23 This is a very pleasant 62-year-old male patient who is coming in to reestablish his sleep apnea care here at the sleep Center. His last evaluation was back in 2017. The patient is a long-term CPAP use and the patient has been on CPAP therapy for more than 8-9 years. The patient has an older generation Respironics unit which is malfunctioning at this point in time and the patient is interested in updating his machine. Noted the patient was being treated with CPAP pressure of 11 cm of water. He also has a Mirage fx nasal mask regarding his obstructive sleep apnea treatment. Note that over the past 6 years, the patient has lost considerable amount of weight. Back in 2019, the patient is to weigh around 192 pounds and has lost approximately 43 pounds for the time being. Despite his weight loss, he has been very compliant to CPAP treatment. He weighs his machine every night. He does not smoke while on the treatment. His been averaging around 9 hours and 40 minutes of CPAP use per night. His current [place] score is at 5. He goes to bed at around 11 PM and wakes up 5 AM in the morning. No major hypersomnia or sleepiness during the day as long as he wears his CPAP. No naps during the day. He wakes up refreshed and alert during the day. He is diabetic. He has also hypertension and hyperlipidemia as comorbid conditions. Review of Systems Constitutional: Reports as per HPI, Reports weight loss Eyes: denies as per HPI, denies blurred vision, denies bulging eye, denies decreased vision, denies diplopia, denies discharge, denies dry eye, denies irritation, denies itching, denies pain, denies photophobia, denies loss of peripheral vision, denies loss of vision, denies tunnel vision/blind spots Ears: deny: decreased hearing, ear discharge, earache, tinnitus Ears, nose, mouth and throat: Reports as per HPI Breasts: absent: as per HPI, gynecomastia Cardiovascular: Reports as per HPI Respiratory: Reports sleep apnea Gastrointestinal: Reports as per HPI Genitourinary: Reports as per HPI Musculoskeletal: Reports as per HPI Musculoskeletal: absent: ankle pain, ankle stiffness, ankle swelling Integumentary: Reports as per HPI Neurological: Reports as per HPI Psychiatric: Reports as per HPI Endocrine: Reports as per HPI Hematologic/Lymphatic: Reports as per HPI Past Medical History Past Medical History: Diabetes Mellitus, Hyperlipidemia, Hypertension, Sleep Apnea/CPAP/BIPAP Additional Past Medical History / Comment(s): Low iron History of Any Multi-Drug Resistant Organisms: None Reported Past Surgical History: Orthopedic Surgery Additional Past Surgical History / Comment(s): knee arthroscopy, pain clinic procedures Past Anesthesia/Blood Transfusion Reactions: No Reported Reaction Past Psychological History: No Psychological Hx Reported Smoking Status: Never smoker Past Alcohol Use History: None Reported Past Drug Use History: None Reported - Past Family History Father Family Medical History: Cancer Mother Family Medical History: No Reported History Medications and Allergies Home Medications Medication Instructions Recorded Confirmed Type Hydrocodone/Acetaminophen 1 tab PO HS PRN 10/29/15 09/30/18 History [Hydrocodon-Acetaminophen 5-325] lisinopriL [Zestril] 10 mg PO DAILY 10/29/15 09/30/18 History metFORMIN HCL [Glucophage] 850 mg PO BID 10/29/15 09/30/18 History traMADol HCL [Tramadol HCl] 50 - 100 mg PO Q8HR PRN 10/29/15 09/30/18 History Citalopram Hydrobromide [CeleXA] 20 mg PO DAILY 04/14/18 09/30/18 History Esomeprazole Magnesium [NexIUM] 20 mg PO DAILY 04/14/18 09/30/18 History Insulin Glargine [Lantus] 26 unit SQ HS 04/14/18 09/30/18 History Pioglitazone [Actos] 30 mg PO DAILY 04/14/18 09/30/18 History Simvastatin [Zocor] 40 mg PO HS 04/14/18 09/30/18 History Ibuprofen [Motrin] 800 mg PO Q8HR PRN 06/02/18 09/30/18 History Allergies Allergy/AdvReac Type Severity Reaction Status Date / Time Penicillins Allergy Swelling Verified 11/01/20 06:54 Physical Exam BP is 109/72, pulse is 78, respirations 12, weight is 249 pounds, temperature is 97.6, pulse ox is 90% on room air oxygen, the size of the neck is 18.5 inches, [place] score is at 5, BMI is at 36. The patient appeared well nourished and normally developed. Vital signs as documented. Head exam is unremarkable. No scleral icterus or corneal arcus noted. Neck is without jugular venous distension, thyromegaly, or carotid bruits. Carotid upstrokes are brisk bilaterally. Lungs are clear to auscultation and percussion. Cardiac exam reveals the PMI to be normally sized and situated. Rhythm is regular. First and second heart sounds normal. No murmurs, rubs or gallops. Abdominal exam reveals normal bowel sounds, no masses, no organomegaly and no aortic enlargement. Extremities are nonedematous and both femoral and pedal pulses are normal.Examination of the skin revealed no evidence of significant rashes, suspicious appearing nevi or other concerning lesions.Neurologically, the patient is awake and alert and the patient does not have any focal neurological deficit. Cranial nerves are essentially intact. Assessment and Plan Plan: Obstructive sleep apnea, currently on a CPAP pressure of 11 cm of water. The patient has been compliant to CPAP therapy over the years and the patient is interested in updating his CPAP unit. His last evaluation with me was back in 2017. Since then, the patient has lost approximately 43 pounds. Continues to use his CPAP without any interruption averaging more than 9 hours of CPAP use per night Chronic hypersomnia, improved and the patient's [place] score is down to 5 Hypertension Hyperlipidemia Diabetes mellitus 2 Plan This patient is very much interested in pursuing and continuing CPAP therapy at the patient has according to him symptoms of obstructive sleep apnea. I'm going to order a home sleep study to be established diagnosis of the severity of the illness and following that the patient can be given a CPAP unit at the same pressure of 11 cm of water. We'll keep him on the same mask interface as the patient is using a Mirage fx nasal mask. encourage further weight loss Optimize sleep hygiene measures Maintain regular sleep schedule We'll continue to follow Sleep Note - Sleep Note Sleep Note: Temperature: Pulse Rate: Respiratory Rate: Blood Pressure: SpO2: Height: Weight: BMI: Neck Circumference:
== END ==
LOC: 3 N SLEEP 13:03
PROVIDERS: ATTEND Internal Medicine Critical Care Medicine
DX: G47.33 Obstructive sleep apnea (adult) (pediatric) (principal); G47.10 Hypersomnia, unspecified; I10 Essential (primary) hypertension; E78.5 Hyperlipidemia, unspecified; E11.9 Type 2 diabetes mellitus without complications; Z99.89 Dependence on other enabling machines and devices; Z79.4 Long term (current) use of insulin; Z79.899 Other long term (current) drug therapy; Z79.84 Long term (current) use of oral hypoglycemic drugs; Z88.0 Allergy status to penicillin
CPT/HCPCS: 99211

== ENCOUNTER → 2023-07-08 | Outpatient (CLI) | payer MEDICAID ==
--- NOTE | 2023-07-14 23:17 | SLS ---
SLEEP STUDY This is a home sleep study. HISTORY OF PRESENT ILLNESS: A 62-year-old male patient, known history of obstructive sleep apnea, maintained on CPAP pressure of 11 cm of water. The patient has been compliant with treatment for many years. His last evaluation was in 2017 and since then, the patient has lost approximately 43 pounds. He continued to use his CPAP without any interruptions and he was interested in continuing CPAP therapy. A home sleep study was ordered to establish again the diagnosis and its severity and decide if ongoing treatment is needed. PERTINENT PHYSICAL FINDINGS: The patient's body mass index is 36. Camden score is at 5 and weight is 249. TECHNICAL DESCRIPTION: The [employer] system was used to complete the home sleep study. This is a type 3 home sleep study. Total recording duration was 9 hours and 43 minutes. The study started at 8:40 p.m., ended at 6:23 a.m. There was more than 9 hours of flow on oxygen saturation evaluation and this was an adequate study. RESULTS: Respiratory count showed a total of 341 obstructive hypopneas and 22 obstructive apneas, and the resulting AHI was 36, worse in the supine body position with an AHI of 45 while being supine. OXYGENATION ANALYSIS: Minimum pulse ox was 80%. Average pulse ox was 90%. Baseline pulse ox was 94% while awake. The patient spent approximately 2 hours and 49 minutes of sleep time at a pulse ox of 88% and below. CARDIAC SUMMARY: Average heart rate was 72, minimum heart rate was 55, maximum heart rate was 109. ASSESSMENT: 1. Severe obstructive sleep apnea with an AHI of 39 and slightly worse in supine body position. 2. Nocturnal oxygen desaturation. 3. Chronic hypersomnia. 4. Diabetes mellitus. 5. Hypertension. 6. Hyperlipidemia. PLAN: Continue CPAP therapy. The patient will be provided a new CPAP machine at a pressure of 11 cm of water, which is the pressure that he has utilized earlier. The patient is using a Mirage FX nasal mask and this will be continued. After obtaining a new machine, the patient will see me back in the office for a compliancy check. TODD / ISSAC: [id number] /
== END ==
LOC: 3 N SLEEP 13:07
PROVIDERS: ATTEND Internal Medicine Critical Care Medicine
DX: G47.33 Obstructive sleep apnea (adult) (pediatric) (principal); G47.36 Sleep related hypoventilation in conditions classified elsewhere; E11.9 Type 2 diabetes mellitus without complications; I10 Essential (primary) hypertension; E78.5 Hyperlipidemia, unspecified; G47.10 Hypersomnia, unspecified; Z99.89 Dependence on other enabling machines and devices; Z88.0 Allergy status to penicillin; Z79.4 Long term (current) use of insulin; Z79.899 Other long term (current) drug therapy; Z79.84 Long term (current) use of oral hypoglycemic drugs

== ENCOUNTER → 2023-09-23 | Outpatient (CLI) | payer BC ==
[2023-09-23 16:12] LABS: ALT 30 U/L (10-49); AST 16 U/L (14-35); Albumin 4.4 g/dL (3.8-4.9); Albumin/Globulin Ratio 1.52 Ratio (1.60-3.17); Alkaline Phosphatase 60 U/L (41-126); BUN/Creat Ratio 15.17 Ratio (12.00-20.00); Blood Urea Nitrogen 18.2 mg/dL (9.0-27.0); Carbon Dioxide 30.3 mmol/L (21.6-31.8); Chloride 101 mmol/L (96-109); Globulin 2.9 g/dL (1.6-3.3); Glucose 127 mg/dL (70-110); LDL Cholesterol,Calculated 73.9 mg/dL (0.0-131.0); Potassium 5.4 mmol/L (3.5-5.5); Sodium 141 mmol/L (135-145); Total Bilirubin 0.3 mg/dL (0.3-1.2); Total Protein 7.3 g/dL (6.2-8.2)
== END | disposition home or self-care (01) ==
LOC: LABWHC1 10:20
PROVIDERS: ATTEND Family Medicine
DX: Z12.5 Encounter for screening for malignant neoplasm of prostate (principal); E11.65 Type 2 diabetes mellitus with hyperglycemia
CPT/HCPCS: 80061; 80053; 83036; 36415; G0103